=== PATIENT | female | born 1995 | race Caucasian/White ===

== ENCOUNTER 2018-06-28 09:16 | Inpatient (IN) | payer MEDICAID ==
[2018-06-28] MEDS ORDERED: Lactated Ringer 1,000 ML IV ONE ×2 (09:50→12:29)
[2018-06-28 09:58] LABS: HEMATOCRIT 45.6 % (41.0-60); HEMOGLOBIN 15.7 gm/dL (12-16); MEAN CELL VOLUME 90.2 fl (81-100); MEAN CORPUSCULAR HGB CONC 34.4 pg (28.0-36.0); MEAN PLATELET VOLUME 7.7 fl; PLATELET COUNT 327 Th/cmm (150-400); RED BLOOD COUNT 5.05 Mil/cmm (3.80-5.10); RED CELL DISTRIBUTION WIDTH 12.1 % (11.5-20.0)
--- NOTE | 2018-06-28 10:06 | ED Physician Chart ---
ED Chief Complaint/HPI - Patient Information Date Seen:: 06/28/18 Time Seen:: 09:25 Chief Complaint:: vomiting and epigastric pain History of Present Illness:: vomiting and epigastric pain--had pizza last night. had a small yogurt this morning. Allergies:: Allergies Allergy/AdvReac Type Severity Reaction Status Date / Time No Known Allergies Allergy Verified 06/28/18 09:30 Vitals:: Vital Signs - 8 hr 06/28/18 09:25 Temp 97.1 F HR 82 RR 18 BP 131/87 O2 Sat % 99 Historian:: Patient, Family Member Review:: Nurse's Note Reviewed ED Review of Systems - Review of Systems General/Constitutional: No fever, No chills, No weight loss, No weakness, No diaphoresis, No edema, No loss of appetite Skin: No skin lesions, No rash, No bruising Head: No headache, No light-headedness Eyes: No loss of vision, No pain, No diplopia ENT: No earache, No nasal drainage, No sore throat, No tinnitus Neck: No neck pain, No swelling, No thyromegaly, No stiffness, No mass noted Cardio Vascular: No chest pain, No palpitations, No PND, No orthopnea, No edema Pulmonary: No SOB, No cough, No sputum, No wheezing GI: Nausea, Vomiting, Diarrhea, Pain, No melena, No hematochezia, No constipation, No hematemesis G/U: No dysuria, No frequency, No hematuria 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, No abnormal vaginal bleed, No contraction Musculoskeletal: No bone or joint pain, No back pain, No muscle pain Endocrine: No polyuria, No polydipsia Psychiatric: No prior psych history, No depression, No anxiety, No suicidal ideation Hematopoietic: No bruising, No lymphadenopathy Allergic/Immuno: No urticaria, No angioedema Neurological: No syncope, No focal symptoms, No weakness, No paresthesia, No headache, No seizure, No dizziness, No confusion, No vertigo ED Past Medical History - Past Medical History Obtainable: Yes Past Medical History: No significant medical hx, Other (marijuana usage) Family Medical History - Family Member Mother History Unknown: Yes ED Physical Exam - Physical Examination General/Constitutional: Awake, Well-developed, well-nourished, Alert, GCS 15, Non-toxic appearing, Ambulatory Other Gen/Cons comments:: pale appearing. positive epigastric pain. Head: Atraumatic Eyes: Lids, conjuctiva normal, PERRL, EOMI Skin: Nl inspection, No rash, No skin lesions, No ecchymosis, Well hydrated, No lymphadenopathy ENMT: External ears, nose nl, Nasal exam nl, Lips, teeth, gums nl Neck: Nontender, Full ROM w/o pain, No JVD, No nuchal rigidity, No bruit, No mass, No stridor Respiratory: Nl effort/Exclusion, Clear to Auscultation, No Wheeze/Rhonchi/Rales Cardio Vascular: RRR, No murmur, gallop, rubs, NL S1 S2 Other GI comments:: Positive peritoneal signs with coughing (present in the epigastrium). Positive pain to palpation in the epigastrium. : No CVA tenderness Extremities: No tenderness or effusion, Full ROM, normal strength in all extremities, No edema, Normal digits & nails Neuro/Psych: Alert/oriented, Normal sensory exam, Normal motor strength, Judgement/insight normal, Normal gait, No focal deficits Misc: Normal back, No paraspinal tenderness ED Assessment - Assessment General Assessment: says that morphine doesn't usually work for her but dilaudid does. ED Septic Shock - . Is Septic Shock (SBP<90, OR Lactate>4 mmol\L) present?: No - <6hrs of presentation: Vital Signs: Vital Signs - 8 hr 06/28/18 09:25 Temp 97.1 F HR 82 RR 18 BP 131/87 O2 Sat % 99 ED Reassessment (Disposition) - Reassessment Reassessment Condition:: Improved - Aftercare/Follow up Instructions Aftercare/Follow-Up Instructions:: Refer to Discharge Instructions - Patient Disposition Discharge/Transfer:: Home Condition at Disposition:: Stable, Improved
[2018-06-28] MEDS ORDERED: Morphine Sulfate 2 mg/mL 1mL Syr IV STA ×3 (10:07→13:55)
[2018-06-28] MEDS ORDERED: Morphine Sulfate 2 mg/mL 1mL Syr ONE ×3 (10:10→13:59)
[2018-06-28 10:16] LABS: ALB/GLOB RATIO 1.9 (1.0-1.8); ALBUMIN 4.8 gm/dL (3.7-5.3); ALKALINE PHOSPHATASE 41 U/L (34-104); AMYLASE SERUM 20 U/L (29-103); ANION GAP 13.6 (7.0-16.0); BILIRUBIN,TOTAL 0.8 mg/dL (0.3-1.0); BUN - UREA NITROGEN 14 mg/dL (7-25); CALCIUM SERUM 10.2 mg/dL (8.6-10.3); CARBON DIOXIDE 24.2 mEq/L (21.0-31.0); CHLORIDE 105 mEq/L (98-107); CREATININE - SERUM 0.8 mg/dL (0.6-1.2); GFR AFRICAN-AMERICAN > 60.0 ml/min (>90); GFR NON AFRICAN-AMERICAN > 60.0 ml/min; GLUCOSE 164 mg/dL (70-105); LIPASE 7 U/L (11-82); MAGNESIUM 1.7 mg/dL (1.9-2.7); PHOSPHOROUS 1.6 mg/dL (2.5-5.0); POTASSIUM SERUM 3.8 mEq/L (3.5-5.1); SGOT 19 U/L (13-39); SGPT/ALT 17 U/L (7-52); SODIUM SERUM 139 mEq/L (136-145); TOTAL PROTEIN,SERUM 7.4 gm/dL (6.0-8.3)
[2018-06-28 10:24] LABS: BAND NEUTROPHILE 3 % (0-10); BASOPHIL 0 % (0-3); EOSINOPHIL 0 % (0-5); LYMPHOCYTE 10 % (20-50); MONOCYTE 2 % (2-10); NEUTROPHILS 85 % (40-80)
[2018-06-28 10:49] LABS: URINE SOURCE CLEAN C
--- NOTE | 2018-06-28 10:50 | Diagnostic Imaging Report ---
CT scan of the abdomen and pelvis without intravenous contrast History: Pain Total DLP equals 354 CTDI equals 7.9 Axial sections were obtained from the xiphoid process down to the pubic symphysis. The liver demonstrates a normal size and contour. No focal lesions are seen. The spleen appears normal. No abnormalities are seen in the region of the pancreas. The kidneys appear normal bilaterally. There is a normal caliber appendix with faint intraluminal hyperdensity. Changes may be related to small appendicoliths. No secondary inflammatory changes are seen. The significance should be correlated clinically. The exam of the pelvis demonstrates preservation of normal fat planes. No abnormal soft tissue masses. No abnormal fluid collections. Impression: 1. Normal caliber appendix with faint intraluminal hyperdensity. Small appendicoliths cannot be excluded. Preservation of adjacent fat planes with no secondary inflammatory signs. The significance should be correlated clinically. 2. No other significant abnormalities
[2018-06-28 10:59] LABS: URINE CLARITY CLEAR (CLEAR); URINE COLOR YELLOW
[2018-06-28 11:00] LABS: URINE BILIRUBIN NEGATIVE (NEGATIVE); URINE BLOOD NEGATIVE (NEGATIVE); URINE EPITHELIAL CELLS MANY /lpf (FEW); URINE GLUCOSE (UA) NEGATIVE (NEGATIVE); URINE KETONE TRACE mg/dL (NEGATIVE); URINE LEUKOCYTE ESTERASE NEGATIVE (NEGATIVE); URINE MICROSCOPIC INDICATED? YES; URINE NITRATE NEGATIVE (NEGATIVE); URINE PH 8.5 (4.6 - 8.0); URINE PROTEIN NEGATIVE (NEGATIVE); URINE RBC 0-2 /hpf (0-5); URINE UROBILINOGEN 0.2 E.U./dL (0.2 - 1.0); URINE WBC 0-2 /hpf (0-5)
[2018-06-28 11:01] LABS: URINE AMORPHOUS SEDIMENT MODERATE PHOSPHATES (NONE SEEN); URINE BACTERIA NONE SEEN /hpf (NONE SEEN)
[2018-06-28 11:18] LABS: AMPHETAMINE URINE NEGATIVE (NEGATIVE); BARBITURATES URINE NEGATIVE (NEGATIVE); BENZODIAZEPINES QUAL URINE NEGATIVE (NEGATIVE); CANNABINOID THC POSITIVE (NEGATIVE); COCAINE METABOLITE QUAL URINE NEGATIVE (NEGATIVE); METHADONE URINE NEGATIVE (NEGATIVE); METHAMPHETAMINES QUAL URINE NEGATIVE (NEGATIVE); OPIATES (MORPHINE) QUAL. URINE NEGATIVE (NEGATIVE); PHENCYCLIDINE (PCP) URINE NEGATIVE (NEGATIVE); TRICYCLICS (TCA) QUAL. URINE NEGATIVE (NEGATIVE)
--- NOTE | 2018-06-28 12:26 | Diagnostic Imaging Report ---
Abdominal ultrasound (Limited) HISTORY: Pain Exam limited to the right upper quadrant of the abdomen. The liver is somewhat generous in size. There is an increase in hepatic parenchymal echogenicity. This finding may be associated with fatty infiltration and should be correlated with liver function tests. No focal lesions. Gallbladder is normal. No calculi. No biliary dilatation. No abnormality seen in the region of the pancreas or right kidney. The remainder of the intra-abdominal organs were not evaluated at this time. IMPRESSION 1. Limited exam of the right upper quadrant 2. Normal-appearing gallbladder 3. Somewhat prominent hepatic size with increased parenchymal echogenicity. The finding may be associated with fatty infiltration and should be correlated with liver function tests.
[2018-06-28 13:33] LABS: BASOPHILE ABSOLUTE 0.1 Th/cumm (0-0.2); HEMATOCRIT 43.2 % (41.0-60); HEMOGLOBIN 14.9 gm/dL (12-16); LYMPHOCYTE ABSOLUTE 0.8 Th/cmm (1.5-3.0); MEAN CELL VOLUME 90.9 fl (81-100); MEAN CORPUSCULAR HEMOGLOBIN 31.3 pg (27.0-31.0); MEAN CORPUSCULAR HGB CONC 34.4 pg (28.0-36.0); MEAN PLATELET VOLUME 7.7 fl; MONOCYTE ABSOLUTE 0.8 Th/cmm (0.3-1.0); NEUTROPHILE ABSOLUTE 21.2 Th/cmm (1.8-8.0); PLATELET COUNT 279 Th/cmm (150-400); RED BLOOD COUNT 4.75 Mil/cmm (3.80-5.10); RED CELL DISTRIBUTION WIDTH 12.1 % (11.5-20.0)
[2018-06-28 13:36] LABS: WHITE BLOOD COUNT 22.9 Th/cmm (4.8-10.8)
[2018-06-28] MEDS ORDERED: Piperacillin Sodium/Tazobact 3.375 gm Vial IV ONE (13:51)
[2018-06-28 13:55] LABS: BAND NEUTROPHILE 3 % (0-10); LYMPHOCYTE 4 % (20-50); MONOCYTE 3 % (2-10); NEUTROPHILS 90 % (40-80)
[2018-06-28] MEDS: HYDROmorphone 1 mg/mL 1mL Syr IVP PRN ×2 (16:06→22:55)
[2018-06-28] MEDS: Sodium Chloride 0.9% 1,000 ML IV SCH (16:07)
[2018-06-28 17:48] VITALS: BP 138/84
[2018-06-29] MEDS ORDERED: Piperacillin Sodium/Tazobact 3.375 gm Vial IV ONE ×2 (01:21→04:57)
[2018-06-29] MEDS: HYDROmorphone 1 mg/mL 1mL Syr IVP PRN ×3 (05:02→18:05)
[2018-06-29 08:38] LABS: % EOSINOPHILS 1.2 % (0.0-5.0); % LYMPHOCYTES 18.5 % (20.0-50.0); % MONOCYTES 6.7 % (2.0-10.0); % NEUTROPHILS 73.6 % (40.0-80.0); EOSINOPHILE ABSOLUTE 0.2 Th/cmm (0.1-0.4); HEMOGLOBIN 13.3 gm/dL (12-16); LYMPHOCYTE ABSOLUTE 2.4 Th/cmm (1.5-3.0); MEAN CORPUSCULAR HEMOGLOBIN 31.6 pg (27.0-31.0); MEAN CORPUSCULAR HGB CONC 35.1 pg (28.0-36.0); MEAN PLATELET VOLUME 7.6 fl; MONOCYTE ABSOLUTE 0.9 Th/cmm (0.3-1.0); NEUTROPHILE ABSOLUTE 9.7 Th/cmm (1.8-8.0); PLATELET COUNT 236 Th/cmm (150-400); RED BLOOD COUNT 4.21 Mil/cmm (3.80-5.10); RED CELL DISTRIBUTION WIDTH 12.4 % (11.5-20.0)
[2018-06-29 08:46] LABS: WHITE BLOOD COUNT 13.2 Th/cmm (4.8-10.8)
[2018-06-29 08:47] LABS: HEMATOCRIT 37.9 % (41.0-60)
[2018-06-29 08:59] LABS: ALB/GLOB RATIO 1.9 (1.0-1.8); ALBUMIN 3.7 gm/dL (3.7-5.3); ALKALINE PHOSPHATASE 28 U/L (34-104); ANION GAP 10.1 (7.0-16.0); BILIRUBIN,TOTAL 1.4 mg/dL (0.3-1.0); BUN - UREA NITROGEN 9 mg/dL (7-25); CALCIUM SERUM 8.7 mg/dL (8.6-10.3); CARBON DIOXIDE 24.3 mEq/L (21.0-31.0); CHLORIDE 110 mEq/L (98-107); CREATININE - SERUM 0.7 mg/dL (0.6-1.2); GFR AFRICAN-AMERICAN > 60.0 ml/min (>90); GFR NON AFRICAN-AMERICAN > 60.0 ml/min; GLUCOSE 111 mg/dL (70-105); LIPASE 8 U/L (11-82); POTASSIUM SERUM 3.4 mEq/L (3.5-5.1); SGOT 12 U/L (13-39); SGPT/ALT 12 U/L (7-52); SODIUM SERUM 141 mEq/L (136-145); TOTAL PROTEIN,SERUM 5.7 gm/dL (6.0-8.3)
--- NOTE | 2018-06-29 09:04 | Diagnostic Imaging Report ---
Ultrasound abdomen HISTORY: Sepsis COMPARISON: CT abdomen and pelvis on 06/28/2018 Technique: Sonography of the abdomen was performed in multiple planes. FINDINGS: The liver demonstrates mild increased echogenicity with no evidence of focal lesions. The liver measures 18.4 cm. No evidence of gallstones or gallbladder wall thickening. The common bile duct measures 2 mm. Evaluation of the pancreas is grossly unremarkable. The right kidney measures 10.5 x 3.5 cm. No evidence of focal lesions or hydronephrosis. The left kidney measures 11.0 x 6.0 cm. No evidence of focal lesions or hydronephrosis. The spleen measures 10 cm. The visualized portions of the abdominal aorta within normal limits in size. IMPRESSION: No evidence of gallstones. No evidence of hydronephrosis. Mild hepatomegaly with mild increased echogenicity which may represent fatty infiltration. Please correlate with clinical findings.
--- NOTE | 2018-06-29 09:08 | Diagnostic Imaging Report ---
Ultrasound pelvis HISTORY: Sepsis pain, nausea and vomiting. Beta hCG is negative LMP is 06/18/2018 COMPARISON: CT abdomen and pelvis on 06/28/2018 Technique: Longitudinal and transverse sonographic sector images of the pelvis were obtained transabdominally and transvaginally. FINDINGS: The uterus measures 7.5 x 2.6 x 4.2 cm. The endometrium measures 2 mm. The right measures 4.1 x 2.6 cm. Right ovarian dominant follicular cyst is noted measuring 1.5 cm. The left ovary measures 3.2 x 2.5 cm. Vascular flow to ovaries is noted. No evidence of free fluid in the pelvis. IMPRESSION: Bilateral follicular cystic changes with dominant right ovarian follicular cysts measuring 1.5 cm. If necessary short-term follow-up may be obtained to ensure resolution. No evidence of free fluid in the pelvis. The Endometrial echo complex measures 2 mm.
--- NOTE | 2018-06-29 09:22 | History and Physical ---
History of Present Illness - HPI Chief Complaint: Abdominal pain and vomiting HPI: Patient refer that after she ate a piece of pizza he started with upper abdominal pain and vomiting reason why he came to ER. During ER evaluation was found WBC of 22 and was hospitalized. , Vital Signs: Last Vital Signs Temp 97.2 F 06/29/18 08:23 Pulse 62 06/29/18 08:23 Resp 17 06/29/18 08:23 BP 107/61 06/29/18 08:23 Pulse Ox 100 06/29/18 08:23 Past Medical History Cardiovascular: Report: No Pertinent Hx Pulmonary: Report: No Pertinent Hx [employer]: Report: No Pertinent Hx GI: Report: No Pertinent Hx Psych: Report: No Pertinent Hx Musculoskeletal: Report: No Pertinent Hx Rheumatologic: Report: No pertinent Hx Infectious Disease: Report: No Pertinent Hx Renal/: Report: No Pertinent Hx Endocrine: Report: No Pertinent Hx - Past Surgical History Past Surgical History: No pertinent Hx Family Medical History - Family Member Mother History Unknown: Yes Ethnicity: Living Status: Still Living Hx Family Cancer: Yes Hx Family Coronary Artery Disease: No Hx Family Congestive Heart Failure: No Hx Family Hypertension: No Hx Family Stroke: No Hx Family Diabetes: No Hx Family Seizures: No Hx Family Dementia: No Hx Family AIDS: No Hx Family HIV: No Hx Family COPD: No Hx Family Hepatitis: No Hx Family Psychiatric Problems: No Hx Family Tuberculosis: No Social History Smoke: No Alcohol: Occassional Drugs: Marijuana Lives: With Family Domestic Violence: Negative - Medications Home Medications: Home Medication Medication Instructions Recorded Type NK [No Home Meds] 06/28/18 History - Allergies Allergies/Adverse Reactions: Allergies Allergy/AdvReac Type Severity Reaction Status Date / Time No Known Allergies Allergy Verified 06/28/18 09:30 Review of Systems - Review of Systems Constitutional: Report: No Significant Eyes: Report: No Significant ENT: Report: No Significant Respiratory: Report: No Significant Cardiovascular: Report: No Significant Gastrointestinal: Report: Nausea, Vomiting, Abdominal Pain Genitourinary: Report: No Significant Musculoskeletal: Report: No Significant Skin: Report: No Significant Neurological: Report: No Significant Physical Exam - Physical Exam HEENT: Report: Ears Nose Throat within normal limits Neck: Report: Within normal limits Cardiovascular Systems: Report: Regular, Rate and Rhythm Respiratory: Report: Clear to Auscultation of lung dolan Abdomen: Report: Tender to palpation Back: Report: Inspection of back is within normal limits. Extremities: Report: Non-tender to palpation. Skin: Report: Color of skin is within normal limits, Warm, Dry Neuro/Psych: Report: Mood affect is within normal limits - Lab Results All Lab Results last 24 hours: Laboratory Results - last 24 hr 06/28/18 06/28/18 06/28/18 09:45 09:45 09:45 WBC 21.0 H* RBC 5.05 Hgb 15.7 Hct 45.6 MCV 90.2 MCH 31.0 MCHC Differential 34.4 RDW 12.1 Plt Count 327 MPV 7.7 Add Manual Diff YES Neutrophils % Band Neutrophils % 3 Lymphocytes % Monocytes % Eosinophils % Basophils % Neutrophils (Manual) 85 H Lymphocytes 10 L Monocytes 2 Eosinophils 0 Basophils 0 Sodium 139 Potassium 3.8 Chloride 105 Carbon Dioxide 24.2 Anion Gap 13.6 BUN 14 Creatinine 0.8 Est GFR ( Amer) > 60.0 Est GFR (Non-Af Amer) > 60.0 BUN/Creatinine Ratio 17.5 Glucose 164 H Whole Bld Lactic Acid Calcium 10.2 Phosphorus 1.6 L Magnesium 1.7 L Total Bilirubin 0.8 AST 19 ALT 17 Alkaline Phosphatase 41 Total Protein 7.4 Albumin 4.8 Globulin 2.6 Albumin/Globulin Ratio 1.9 H Amylase 20 L Lipase 7 L Serum , Qual NEGATIVE Urine Source Urine Color Urine Clarity Urine pH Ur Specific [place] Urine Protein Urine Glucose (UA) Urine Ketones Urine Blood Urine Nitrate Urine Bilirubin Urine Urobilinogen Ur Leukocyte Esterase Urine RBC Urine WBC Ur Epithelial Cells Amorphous Sediment Urine Bacteria Urine Mucus Stool Occult Blood Vancomycin Trough Urine Opiates Screen Urine Methadone Screen Ur Barbiturates Screen Ur Tricyclics Screen Ur Phencyclidine Scrn Amphetamines Screen U Methamphetamines Scrn U Benzodiazepines Scrn U Cocaine Metab Screen U Cannabinoids Screen 06/28/18 06/28/18 06/28/18 09:45 10:20 10:20 WBC RBC Hgb Hct MCV MCH MCHC Differential RDW Plt Count MPV Add Manual Diff Neutrophils % Band Neutrophils % Lymphocytes % Monocytes % Eosinophils % Basophils % Neutrophils (Manual) Lymphocytes Monocytes Eosinophils Basophils Sodium Potassium Chloride Carbon Dioxide Anion Gap BUN Creatinine Est GFR ( Amer) Est GFR (Non-Af Amer) BUN/Creatinine Ratio Glucose Whole Bld Lactic Acid 2.26 H* Calcium Phosphorus Magnesium Total Bilirubin AST ALT Alkaline Phosphatase Total Protein Albumin Globulin Albumin/Globulin Ratio Amylase Lipase Serum , Qual Urine Source CLEAN C Urine Color YELLOW Urine Clarity CLEAR Urine pH 8.5 Ur Specific [place] 1.020 Urine Protein NEGATIVE Urine Glucose (UA) NEGATIVE Urine Ketones TRACE Urine Blood NEGATIVE Urine Nitrate NEGATIVE Urine Bilirubin NEGATIVE Urine Urobilinogen 0.2 Ur Leukocyte Esterase NEGATIVE Urine RBC 0-2 Urine WBC 0-2 Ur Epithelial Cells MANY Amorphous Sediment MODERATE PHOSPHATES Urine Bacteria NONE SEEN Urine Mucus FEW Stool Occult Blood Vancomycin Trough Urine Opiates Screen NEGATIVE Urine Methadone Screen NEGATIVE Ur Barbiturates Screen NEGATIVE Ur Tricyclics Screen NEGATIVE Ur Phencyclidine Scrn NEGATIVE Amphetamines Screen NEGATIVE U Methamphetamines Scrn NEGATIVE U Benzodiazepines Scrn NEGATIVE U Cocaine Metab Screen NEGATIVE U Cannabinoids Screen POSITIVE H 06/28/18 06/28/18 06/28/18 11:45 13:20 13:55 WBC 22.9 H* RBC 4.75 Hgb 14.9 Hct 43.2 MCV 90.9 MCH 31.3 H MCHC Differential 34.4 RDW 12.1 Plt Count 279 MPV 7.7 Add Manual Diff YES Neutrophils % Band Neutrophils % 3 Lymphocytes % Monocytes % Eosinophils % Basophils % Neutrophils (Manual) 90 H Lymphocytes 4 L Monocytes 3 Eosinophils Basophils Sodium Potassium Chloride Carbon Dioxide Anion Gap BUN Creatinine Est GFR ( Amer) Est GFR (Non-Af Amer) BUN/Creatinine Ratio Glucose Whole Bld Lactic Acid 2.02 H* 2.44 H* Calcium Phosphorus Magnesium Total Bilirubin AST ALT Alkaline Phosphatase Total Protein Albumin Globulin Albumin/Globulin Ratio Amylase Lipase Serum , Qual Urine Source Urine Color Urine Clarity Urine pH Ur Specific [place] Urine Protein Urine Glucose (UA) Urine Ketones Urine Blood Urine Nitrate Urine Bilirubin Urine Urobilinogen Ur Leukocyte Esterase Urine RBC Urine WBC Ur Epithelial Cells Amorphous Sediment Urine Bacteria Urine Mucus Stool Occult Blood Vancomycin Trough Urine Opiates Screen Urine Methadone Screen Ur Barbiturates Screen Ur Tricyclics Screen Ur Phencyclidine Scrn Amphetamines Screen U Methamphetamines Scrn U Benzodiazepines Scrn U Cocaine Metab Screen U Cannabinoids Screen 06/28/18 06/28/18 06/29/18 14:44 15:55 08:30 WBC RBC Hgb Hct MCV MCH MCHC Differential RDW Plt Count MPV Add Manual Diff Neutrophils % Band Neutrophils % Lymphocytes % Monocytes % Eosinophils % Basophils % Neutrophils (Manual) Lymphocytes Monocytes Eosinophils Basophils Sodium Potassium Chloride Carbon Dioxide Anion Gap BUN Creatinine Est GFR ( Amer) Est GFR (Non-Af Amer) BUN/Creatinine Ratio Glucose Whole Bld Lactic Acid 3.45 H* Calcium Phosphorus Magnesium Total Bilirubin AST ALT Alkaline Phosphatase Total Protein Albumin Globulin Albumin/Globulin Ratio Amylase Lipase Serum , Qual Urine Source Urine Color Urine Clarity Urine pH Ur Specific [place] Urine Protein Urine Glucose (UA) Urine Ketones Urine Blood Urine Nitrate Urine Bilirubin Urine Urobilinogen Ur Leukocyte Esterase Urine RBC Urine WBC Ur Epithelial Cells Amorphous Sediment Urine Bacteria Urine Mucus Stool Occult Blood NEGATIVE Vancomycin Trough 13.0 H Urine Opiates Screen Urine Methadone Screen Ur Barbiturates Screen Ur Tricyclics Screen Ur Phencyclidine Scrn Amphetamines Screen U Methamphetamines Scrn U Benzodiazepines Scrn U Cocaine Metab Screen U Cannabinoids Screen 06/29/18 06/29/18 08:30 08:30 WBC 13.2 H D RBC 4.21 Hgb 13.3 Hct 37.9 L D MCV 90.0 MCH 31.6 H MCHC Differential 35.1 RDW 12.4 Plt Count 236 MPV 7.6 Add Manual Diff Neutrophils % 73.6 Band Neutrophils % Lymphocytes % 18.5 L Monocytes % 6.7 Eosinophils % 1.2 Basophils % 0.0 Neutrophils (Manual) Lymphocytes Monocytes Eosinophils Basophils Sodium 141 Potassium 3.4 L Chloride 110 H Carbon Dioxide 24.3 Anion Gap 10.1 BUN 9 Creatinine 0.7 Est GFR ( Amer) > 60.0 Est GFR (Non-Af Amer) > 60.0 BUN/Creatinine Ratio 12.9 Glucose 111 H Whole Bld Lactic Acid Calcium 8.7 Phosphorus Magnesium Total Bilirubin 1.4 H AST 12 L ALT 12 Alkaline Phosphatase 28 L Total Protein 5.7 L Albumin 3.7 Globulin 2.0 Albumin/Globulin Ratio 1.9 H Amylase Lipase 8 L Serum , Qual Urine Source Urine Color Urine Clarity Urine pH Ur Specific [place] Urine Protein Urine Glucose (UA) Urine Ketones Urine Blood Urine Nitrate Urine Bilirubin Urine Urobilinogen Ur Leukocyte Esterase Urine RBC Urine WBC Ur Epithelial Cells Amorphous Sediment Urine Bacteria Urine Mucus Stool Occult Blood Vancomycin Trough Urine Opiates Screen Urine Methadone Screen Ur Barbiturates Screen Ur Tricyclics Screen Ur Phencyclidine Scrn Amphetamines Screen U Methamphetamines Scrn U Benzodiazepines Scrn U Cocaine Metab Screen U Cannabinoids Screen - Assessment Assessment: Patient is awake, calm in no acute dostress. Dx: abdominal pain, Leukocytosis - Plan Plan: Patient is in IV NS, IV Vanco and sozyn, pain control, consult with ID and surgery requested. Will continue to monitor.
[2018-06-29] MEDS: Sodium Chloride 0.9% 1,000 ML IV SCH (09:24)
[2018-06-29] MEDS ORDERED: Potassium Chloride 20 mEq ER Tab PO ONE (10:00)
[2018-06-29] MEDS ORDERED: Probiotic Screen MC PRN (11:30)
--- NOTE | 2018-06-29 14:57 | Consultation ---
DATE OF CONSULTATION: 06/29/2018 SURGICAL CONSULTATION REFERRING PHYSICIAN: Dr. Gutierrez. REASON FOR CONSULTATION: Abdominal pain. Thank you for referring this patient to me. HISTORY OF PRESENT ILLNESS: This 22-year-old female who started having pain about 2 days ago. Pain was epigastric, associated with some nausea. In the ER, she was found to have WBC of 22,000. A CT scan of the abdomen was unremarkable except for possible appendicolith. Gallbladder ultrasound was done x 2 and this did not show any gallstones or gallbladder wall thickening. The repeat lab test today shows WBC down to 13,200 and the chemistries initially showed normal liver function test and now there is some elevation of the bilirubin to 1.4. HIDA scan was ordered, but the machine is not functional now and will wait for this to be done. PHYSICAL EXAMINATION: The patient is alert and awake. There is minimal tenderness mostly in the epigastric area. No tenderness in the right lower quadrant. The patient has had no previous and no previous abdominal surgery. IMPRESSION: Abdominal pain, etiology? possible non-calculous cholecystitis and/or peptic ulcer disease. RECOMMENDATION: 1. Await HIDA scan. 2. GI consult recommended. JOB# [id number]
[2018-06-30] MEDS: HYDROmorphone 1 mg/mL 1mL Syr IVP PRN ×4 (00:13→18:18)
--- NOTE | 2018-06-30 01:16 | Consultation ---
DATE OF CONSULTATION: 06/29/2018 INFECTIOUS DISEASE CONSULTATION REFERRING PHYSICIAN: Dr. Gutierrez. REASON FOR CONSULTATION: Leukocytosis. HISTORY OF PRESENT ILLNESS: The patient is a 22-year-old female with no significant past medical history, presented to ER with bilious vomiting, ____ epigastric pain, to alert him one hour after eating pizza the night before yesterday. On initial evaluation, her temperature was 97.1 degree Fahrenheit and WBC count was 21,000. Repeat CBC showed increase in WBC from 22,900. Lactic acid was 2.02, it went up to 3.45. The patient was started on IV fluid and antibiotic, vancomycin and Zosyn. Today she is feeling better and her WBC count improved to 13,000. CT scan of the abdomen and pelvis and ultrasound abdomen performed, transvaginal ultrasound was also performed. Report reviewed. PAST MEDICAL HISTORY: None significant. FAMILY HISTORY: None significant. ALLERGIES: NKDA. MEDICATIONS: As per medication reconciliation sheet. Antibiotic beasley, the patient is receiving vancomycin and Zosyn. FAMILY HISTORY: Noncontributory. SOCIAL HISTORY: The patient lives with her family. No history of smoking or alcohol. The patient takes marihuana on special occasions. REVIEW OF SYSTEMS: GENERAL: The patient has no fever, no chills. HEENT: No diplopia, no photophobia, no sore throat. RESPIRATORY: No cough, no shortness of breath. CARDIOVASCULAR: No chest pain or palpitation. GASTROINTESTINAL: The patient has no nausea, no vomiting, but the patient has right upper quadrant epigastric pain. GENITOURINARY: No dysuria. NEUROLOGIC: No headache, no dizziness, no focal weakness. PHYSICAL EXAMINATION: VITAL SIGNS: Shows temperature is 98 degrees Fahrenheit, pulse 70, respirations 17, blood pressure 112/70. GENERAL: The patient is comfortable lying in the bed, not in acute distress. HEENT: Head is normocephalic, atraumatic. Oral cavity moist, pink tongue. Eyes: Pallor is present, no icterus. Pupils PERRLA, EOMI. NECK: Supple, no JVD, no carotid bruit. Trachea midline. CHEST: Bilateral breath sounds. No crackles or wheezing. HEART: S1, S2 within normal limits. Regular rhythm. No murmur, no gallop. ABDOMEN: Soft. The patient has right upper quadrant tenderness. No epigastric tenderness. Bowel sounds present. EXTREMITIES: No cyanosis, no clubbing, no edema. NEUROLOGICAL: Alert, awake, oriented x3. No focal deficit. LABORATORY DATA: Current lab shows WBC count 13,200, hemoglobin is 13.3, hematocrit is 37.9, platelets are 236,000, neutrophils 74%. Sodium 141, potassium 3.4, chloride 110, bicarbonate is 24, BUN is 9, creatinine 0.7, glucose is 111. Lactic acid 3.45. Urinalysis negative nitrite, negative leukoesterase and WBC 0-2, moderate bacteria. Stool for occult blood negative. Drug screen is positive for cannabinoids. IMPRESSION: 1. Likely gastroenteritis, rule out gallbladder disease. 2. Leukocytosis, improving, secondary to #1. Recommend change antibiotic to Levaquin and Flagyl IV. Depending on the HIDA scan which is ordered tomorrow. We will decide further therapy. Thank you, Dr. Gutierrez for involving me in taking care of this patient. JOB# [id number] [facility]
[2018-06-30] MEDS: Sodium Chloride 0.9% 1,000 ML IV SCH ×2 (05:44→18:59)
[2018-06-30 06:47] LABS: HEMATOCRIT 40.2 % (41.0-60); HEMOGLOBIN 13.8 gm/dL (12-16); MEAN CELL VOLUME 91.5 fl (81-100); MEAN CORPUSCULAR HEMOGLOBIN 31.5 pg (27.0-31.0); MEAN CORPUSCULAR HGB CONC 34.4 pg (28.0-36.0); MEAN PLATELET VOLUME 8.5 fl; PLATELET COUNT 238 Th/cmm (150-400); RED CELL DISTRIBUTION WIDTH 12.2 % (11.5-20.0)
[2018-06-30 06:54] LABS: WHITE BLOOD COUNT 21.8 Th/cmm (4.8-10.8)
[2018-06-30 07:28] LABS: BAND NEUTROPHILE 1 % (0-10); BASOPHIL 1 % (0-3); EOSINOPHIL 0 % (0-5); LYMPHOCYTE 5 % (20-50); MONOCYTE 5 % (2-10); NEUTROPHILS 88 % (40-80)
--- NOTE | 2018-06-30 08:45 | General Progress Note ---
Subjective - Review of Systems Service Date: 06/30/18 Events since last encounter: HIDA being done now WBC 21.8, etiology? no CMP report yet suggest GI consult Objective - Results Result Diagrams: 06/30/18 05:35 06/29/18 08:30 Recent Labs: Laboratory Last Values WBC 21.8 Th/cmm (4.8-10.8) H* D 06/30/18 05:35 RBC 4.40 Mil/cmm (3.80-5.10) 06/30/18 05:35 Hgb 13.8 gm/dL (12-16) 06/30/18 05:35 Hct 40.2 % (41.0-60) L 06/30/18 05:35 MCV 91.5 fl (81-100) 06/30/18 05:35 MCH 31.5 pg (27.0-31.0) H 06/30/18 05:35 MCHC Differential 34.4 pg (28.0-36.0) 06/30/18 05:35 RDW 12.2 % (11.5-20.0) 06/30/18 05:35 Plt Count 238 Th/cmm (150-400) 06/30/18 05:35 MPV 8.5 fl 06/30/18 05:35 Add Manual Diff YES 06/30/18 05:35 Neutrophils % 73.6 % (40.0-80.0) 06/29/18 08:30 Band Neutrophils % 1 % (0-10) 06/30/18 05:35 Lymphocytes % 18.5 % (20.0-50.0) L 06/29/18 08:30 Monocytes % 6.7 % (2.0-10.0) 06/29/18 08:30 Eosinophils % 1.2 % (0.0-5.0) 06/29/18 08:30 Basophils % 0.0 % (0.0-2.0) 06/29/18 08:30 Neutrophils (Manual) 88 % (40-80) H 06/30/18 05:35 Lymphocytes 5 % (20-50) L 06/30/18 05:35 Monocytes 5 % (2-10) 06/30/18 05:35 Eosinophils 0 % (0-5) 06/30/18 05:35 Basophils 1 % (0-3) 06/30/18 05:35 Sodium 141 mEq/L (136-145) 06/29/18 08:30 Potassium 3.4 mEq/L (3.5-5.1) L 06/29/18 08:30 Chloride 110 mEq/L (98-107) H 06/29/18 08:30 Carbon Dioxide 24.3 mEq/L (21.0-31.0) 06/29/18 08:30 Anion Gap 10.1 (7.0-16.0) 06/29/18 08:30 BUN 9 mg/dL (7-25) 06/29/18 08:30 Creatinine 0.7 mg/dL (0.6-1.2) 06/29/18 08:30 Est GFR ( Amer) > 60.0 ml/min (>90) 06/29/18 08:30 Est GFR (Non-Af Amer) > 60.0 ml/min 06/29/18 08:30 BUN/Creatinine Ratio 12.9 06/29/18 08:30 Glucose 111 mg/dL (70-105) H 06/29/18 08:30 Whole Bld Lactic Acid 1.31 mmol/L (0.60-1.99) 06/29/18 17:10 Calcium 8.7 mg/dL (8.6-10.3) 06/29/18 08:30 Phosphorus 1.6 mg/dL (2.5-5.0) L 06/28/18 09:45 Magnesium 1.7 mg/dL (1.9-2.7) L 06/28/18 09:45 Total Bilirubin 1.4 mg/dL (0.3-1.0) H 06/29/18 08:30 AST 12 U/L (13-39) L 06/29/18 08:30 ALT 12 U/L (7-52) 06/29/18 08:30 Alkaline Phosphatase 28 U/L (34-104) L 06/29/18 08:30 Total Protein 5.7 gm/dL (6.0-8.3) L 06/29/18 08:30 Albumin 3.7 gm/dL (3.7-5.3) 06/29/18 08:30 Globulin 2.0 gm/dL 06/29/18 08:30 Albumin/Globulin Ratio 1.9 (1.0-1.8) H 06/29/18 08:30 Amylase 20 U/L (29-103) L 06/28/18 09:45 Lipase 8 U/L (11-82) L 06/29/18 08:30 Serum , Qual NEGATIVE (NEGATIVE) 06/28/18 09:45 Urine Source CLEAN C 06/28/18 10:20 Urine Color YELLOW 06/28/18 10:20 Urine Clarity CLEAR (CLEAR) 06/28/18 10:20 Urine pH 8.5 (4.6 - 8.0) 06/28/18 10:20 Ur Specific [place] 1.020 (1.005-1.030) 06/28/18 10:20 Urine Protein NEGATIVE mg/dL (NEGATIVE) 06/28/18 10:20 Urine Glucose (UA) NEGATIVE mg/dL (NEGATIVE) 06/28/18 10:20 Urine Ketones TRACE mg/dL (NEGATIVE) 06/28/18 10:20 Urine Blood NEGATIVE (NEGATIVE) 06/28/18 10:20 Urine Nitrate NEGATIVE (NEGATIVE) 06/28/18 10:20 Urine Bilirubin NEGATIVE (NEGATIVE) 06/28/18 10:20 Urine Urobilinogen 0.2 E.U./dL (0.2 - 1.0) 06/28/18 10:20 Ur Leukocyte Esterase NEGATIVE (NEGATIVE) 06/28/18 10:20 Urine RBC 0-2 /hpf (0-5) 06/28/18 10:20 Urine WBC 0-2 /hpf (0-5) 06/28/18 10:20 Ur Epithelial Cells MANY /lpf (FEW) 06/28/18 10:20 Amorphous Sediment MODERATE PHOSPHATES (NONE SEEN) 06/28/18 10:20 Urine Bacteria NONE SEEN /hpf (NONE SEEN) 06/28/18 10:20 Urine Mucus FEW /lpf (FEW) 06/28/18 10:20 Stool Occult Blood NEGATIVE (NEGATIVE) 06/28/18 14:44 Vancomycin Trough 13.0 ug/mL (5-10) H 06/29/18 08:30 Urine Opiates Screen NEGATIVE (NEGATIVE) 06/28/18 10:20 Urine Methadone Screen NEGATIVE (NEGATIVE) 06/28/18 10:20 Ur Barbiturates Screen NEGATIVE (NEGATIVE) 06/28/18 10:20 Ur Tricyclics Screen NEGATIVE (NEGATIVE) 06/28/18 10:20 Ur Phencyclidine Scrn NEGATIVE (NEGATIVE) 06/28/18 10:20 Amphetamines Screen NEGATIVE (NEGATIVE) 06/28/18 10:20 U Methamphetamines Scrn NEGATIVE (NEGATIVE) 06/28/18 10:20 U Benzodiazepines Scrn NEGATIVE (NEGATIVE) 06/28/18 10:20 U Cocaine Metab Screen NEGATIVE (NEGATIVE) 06/28/18 10:20 U Cannabinoids Screen POSITIVE (NEGATIVE) H 06/28/18 10:20 - Physical Exam Vitals and I&O: Vital Signs Temp 97.9 F 06/30/18 04:00 Pulse 70 06/30/18 04:00 Resp 18 06/30/18 04:00 BP 141/95 06/30/18 04:00 Pulse Ox 100 06/30/18 04:00 Intake & Output 06/29/18 06/30/18 06/30/18 18:59 06:59 18:59 Intake Total 850 1480 Output Total 300 Balance 550 1480 Weight (lbs) 62.596 kg 64.41 kg Intake: Intake, IV Amount 50 1000 Piperacillin Sodium/ 50 Tazobact 3.375 gm In Sodium Chloride 0.9% 50 ml @ 100 mls/hr IV Q6HR [facility] Rx#:[id number] Sodium Chloride 0.9% 1, 1000 000 ml @ 75 mls/hr IV . [id number] [facility] Rx#:[id number] Oral 800 480 Output: Emesis 300 Other: # Voids 5 4 # Bowel Movements 1 Stool Characteristics Soft Weight Source Bedscale Bedscale Active Medications: Current Medications Famotidine (Pepcid) 20 mg IVP Q24HR [facility] Stop: 08/27/18 15:03 Last Admin: 06/29/18 15:46 Dose: 20 mg Hydromorphone HCl (Dilaudid) 1 mg IVP Q6HR PRN PRN Reason: Pain (Severe) Stop: 08/27/18 15:03 Last Admin: 06/30/18 06:01 Dose: 1 mg Sodium Chloride (Nacl 0.9%) 1,000 mls @ 75 mls/hr IV .[id number] [facility] Stop: 08/27/18 15:03 Last Admin: 06/30/18 05:44 Dose: 75 mls/hr Ceftriaxone Sodium 1 gm/ (Dextrose) 50 mls @ 100 mls/hr IV Q24H [facility] Stop: 08/28/18 15:59 Last Admin: 06/29/18 15:45 Dose: 100 mls/hr Lactobacillus Rhamnosus (Culturelle 15b) 1 each PO DAILY [facility] Stop: 08/29/18 08:59 Metronidazole (Flagyl) 500 mg PO BID [facility] Stop: 07/06/18 16:59 Last Admin: 06/29/18 17:12 Dose: 500 mg Miscellaneous (Probiotic Screen) 1 ea PRN PRN PRN Reason: PROTOCOL Stop: 08/28/18 11:29 Ondansetron HCl (Zofran) 4 mg IV Q8HR [facility] Stop: 08/27/18 20:59 Last Admin: 06/30/18 06:01 Dose: 4 mg Ondansetron HCl (Zofran) 4 mg IV Q6H PRN PRN Reason: Nausea / Vomiting Stop: 08/28/18 16:18 Last Admin: 06/30/18 00:13 Dose: 4 mg
--- NOTE | 2018-06-30 09:09 | General Progress Note ---
Subjective - Review of Systems Service Date: 06/30/18 Subjective: I have nausea Objective - Results Result Diagrams: 06/30/18 05:35 06/29/18 08:30 Recent Labs: Laboratory Last Values WBC 21.8 Th/cmm (4.8-10.8) H* D 06/30/18 05:35 RBC 4.40 Mil/cmm (3.80-5.10) 06/30/18 05:35 Hgb 13.8 gm/dL (12-16) 06/30/18 05:35 Hct 40.2 % (41.0-60) L 06/30/18 05:35 MCV 91.5 fl (81-100) 06/30/18 05:35 MCH 31.5 pg (27.0-31.0) H 06/30/18 05:35 MCHC Differential 34.4 pg (28.0-36.0) 06/30/18 05:35 RDW 12.2 % (11.5-20.0) 06/30/18 05:35 Plt Count 238 Th/cmm (150-400) 06/30/18 05:35 MPV 8.5 fl 06/30/18 05:35 Add Manual Diff YES 06/30/18 05:35 Neutrophils % 73.6 % (40.0-80.0) 06/29/18 08:30 Band Neutrophils % 1 % (0-10) 06/30/18 05:35 Lymphocytes % 18.5 % (20.0-50.0) L 06/29/18 08:30 Monocytes % 6.7 % (2.0-10.0) 06/29/18 08:30 Eosinophils % 1.2 % (0.0-5.0) 06/29/18 08:30 Basophils % 0.0 % (0.0-2.0) 06/29/18 08:30 Neutrophils (Manual) 88 % (40-80) H 06/30/18 05:35 Lymphocytes 5 % (20-50) L 06/30/18 05:35 Monocytes 5 % (2-10) 06/30/18 05:35 Eosinophils 0 % (0-5) 06/30/18 05:35 Basophils 1 % (0-3) 06/30/18 05:35 Sodium 141 mEq/L (136-145) 06/29/18 08:30 Potassium 3.4 mEq/L (3.5-5.1) L 06/29/18 08:30 Chloride 110 mEq/L (98-107) H 06/29/18 08:30 Carbon Dioxide 24.3 mEq/L (21.0-31.0) 06/29/18 08:30 Anion Gap 10.1 (7.0-16.0) 06/29/18 08:30 BUN 9 mg/dL (7-25) 06/29/18 08:30 Creatinine 0.7 mg/dL (0.6-1.2) 06/29/18 08:30 Est GFR ( Amer) > 60.0 ml/min (>90) 06/29/18 08:30 Est GFR (Non-Af Amer) > 60.0 ml/min 06/29/18 08:30 BUN/Creatinine Ratio 12.9 06/29/18 08:30 Glucose 111 mg/dL (70-105) H 06/29/18 08:30 Whole Bld Lactic Acid 1.31 mmol/L (0.60-1.99) 06/29/18 17:10 Calcium 8.7 mg/dL (8.6-10.3) 06/29/18 08:30 Phosphorus 1.6 mg/dL (2.5-5.0) L 06/28/18 09:45 Magnesium 1.7 mg/dL (1.9-2.7) L 06/28/18 09:45 Total Bilirubin 1.4 mg/dL (0.3-1.0) H 06/29/18 08:30 AST 12 U/L (13-39) L 06/29/18 08:30 ALT 12 U/L (7-52) 06/29/18 08:30 Alkaline Phosphatase 28 U/L (34-104) L 06/29/18 08:30 Total Protein 5.7 gm/dL (6.0-8.3) L 06/29/18 08:30 Albumin 3.7 gm/dL (3.7-5.3) 06/29/18 08:30 Globulin 2.0 gm/dL 06/29/18 08:30 Albumin/Globulin Ratio 1.9 (1.0-1.8) H 08/21/18 08:30 Amylase 20 U/L (29-103) L 06/28/18 09:45 Lipase 8 U/L (11-82) L 06/29/18 08:30 Serum , Qual NEGATIVE (NEGATIVE) 06/28/18 09:45 Urine Source CLEAN C 06/28/18 10:20 Urine Color YELLOW 06/28/18 10:20 Urine Clarity CLEAR (CLEAR) 06/28/18 10:20 Urine pH 8.5 (4.6 - 8.0) 06/28/18 10:20 Ur Specific [place] 1.020 (1.005-1.030) 06/28/18 10:20 Urine Protein NEGATIVE mg/dL (NEGATIVE) 06/28/18 10:20 Urine Glucose (UA) NEGATIVE mg/dL (NEGATIVE) 06/28/18 10:20 Urine Ketones TRACE mg/dL (NEGATIVE) 06/28/18 10:20 Urine Blood NEGATIVE (NEGATIVE) 06/28/18 10:20 Urine Nitrate NEGATIVE (NEGATIVE) 06/28/18 10:20 Urine Bilirubin NEGATIVE (NEGATIVE) 06/28/18 10:20 Urine Urobilinogen 0.2 E.U./dL (0.2 - 1.0) 06/28/18 10:20 Ur Leukocyte Esterase NEGATIVE (NEGATIVE) 06/28/18 10:20 Urine RBC 0-2 /hpf (0-5) 06/28/18 10:20 Urine WBC 0-2 /hpf (0-5) 06/28/18 10:20 Ur Epithelial Cells MANY /lpf (FEW) 06/28/18 10:20 Amorphous Sediment MODERATE PHOSPHATES (NONE SEEN) 06/28/18 10:20 Urine Bacteria NONE SEEN /hpf (NONE SEEN) 06/28/18 10:20 Urine Mucus FEW /lpf (FEW) 06/28/18 10:20 Stool Occult Blood NEGATIVE (NEGATIVE) 06/28/18 14:44 Vancomycin Trough 13.0 ug/mL (5-10) H 06/29/18 08:30 Urine Opiates Screen NEGATIVE (NEGATIVE) 06/28/18 10:20 Urine Methadone Screen NEGATIVE (NEGATIVE) 06/28/18 10:20 Ur Barbiturates Screen NEGATIVE (NEGATIVE) 06/28/18 10:20 Ur Tricyclics Screen NEGATIVE (NEGATIVE) 06/28/18 10:20 Ur Phencyclidine Scrn NEGATIVE (NEGATIVE) 06/28/18 10:20 Amphetamines Screen NEGATIVE (NEGATIVE) 06/28/18 10:20 U Methamphetamines Scrn NEGATIVE (NEGATIVE) 06/28/18 10:20 U Benzodiazepines Scrn NEGATIVE (NEGATIVE) 06/28/18 10:20 U Cocaine Metab Screen NEGATIVE (NEGATIVE) 06/28/18 10:20 U Cannabinoids Screen POSITIVE (NEGATIVE) H 06/28/18 10:20 - Physical Exam Vitals and I&O: Vital Signs Temp 97.9 F 06/30/18 04:00 Pulse 70 06/30/18 04:00 Resp 18 06/30/18 04:00 BP 141/95 06/30/18 04:00 Pulse Ox 100 06/30/18 04:00 Intake & Output 06/29/18 06/30/18 06/30/18 18:59 06:59 18:59 Intake Total 850 1480 Output Total 300 Balance 550 1480 Weight (lbs) 62.596 kg 64.41 kg Intake: Intake, IV Amount 50 1000 Piperacillin Sodium/ 50 Tazobact 3.375 gm In Sodium Chloride 0.9% 50 ml @ 100 mls/hr IV Q6HR [facility] Rx#:[id number] Sodium Chloride 0.9% 1, 1000 000 ml @ 75 mls/hr IV . [id number] [facility] Rx#:[id number] Oral 800 480 Output: Emesis 300 Other: # Voids 5 4 # Bowel Movements 1 Stool Characteristics Soft Weight Source Bedscale Bedscale Active Medications: Current Medications Famotidine (Pepcid) 20 mg IVP Q24HR [facility] Stop: 08/27/18 15:03 Last Admin: 06/29/18 15:46 Dose: 20 mg Hydromorphone HCl (Dilaudid) 1 mg IVP Q6HR PRN PRN Reason: Pain (Severe) Stop: 08/27/18 15:03 Last Admin: 06/30/18 06:01 Dose: 1 mg Sodium Chloride (Nacl 0.9%) 1,000 mls @ 75 mls/hr IV .[id number] [facility] Stop: 08/27/18 15:03 Last Admin: 06/30/18 05:44 Dose: 75 mls/hr Ceftriaxone Sodium 1 gm/ (Dextrose) 50 mls @ 100 mls/hr IV Q24H [facility] Stop: 08/28/18 15:59 Last Admin: 06/29/18 15:45 Dose: 100 mls/hr Lactobacillus Rhamnosus (Culturelle 15b) 1 each PO DAILY [facility] Stop: 08/29/18 08:59 Metronidazole (Flagyl) 500 mg PO BID [facility] Stop: 07/06/18 16:59 Last Admin: 06/29/18 17:12 Dose: 500 mg Miscellaneous (Probiotic Screen) 1 ea [facility] PRN PRN PRN Reason: PROTOCOL Stop: 08/28/18 11:29 Ondansetron HCl (Zofran) 4 mg IV Q6H PRN PRN Reason: Nausea / Vomiting Stop: 08/28/18 16:18 Last Admin: 06/30/18 00:13 Dose: 4 mg General: Alert, Oriented x3, No acute distress HEENT: Atraumatic Neck: Supple Cardiovascular: Regular rate Lungs: Clear to auscultation Abdomen: Bowel sounds, Soft, Other (Tender at palpation on hepygastry) Extremities: Other (No edema) Neurological: Normal gait Skin: Other (Warm and dry) Psych/Mental Status: Mental status NL Assessment/Plan - Assessment Assessment: Patient is awake, calm in no acute distress. The WBC increased, went from 13 to 21. [place] increased. Dx: abdominal pain, Leukocytosis - Plan Plan: Patient is in IV NS, antibiotic change to IV Rocephin and metronidazole. Patient follow by ID and surgery, consult with GI requested. Awaitting HIDA scan results. Will continue to monitor.
[2018-06-30 09:19] LABS: ALB/GLOB RATIO 1.8 (1.0-1.8); ALBUMIN 4.3 gm/dL (3.7-5.3); ALKALINE PHOSPHATASE 31 U/L (34-104); ANION GAP 14.8 (7.0-16.0); BILIRUBIN,TOTAL 1.5 mg/dL (0.3-1.0); BUN - UREA NITROGEN 10 mg/dL (7-25); CALCIUM SERUM 9.4 mg/dL (8.6-10.3); CARBON DIOXIDE 21.7 mEq/L (21.0-31.0); CHLORIDE 105 mEq/L (98-107); GFR AFRICAN-AMERICAN > 60.0 ml/min (>90); GFR NON AFRICAN-AMERICAN > 60.0 ml/min; GLUCOSE 147 mg/dL (70-105); POTASSIUM SERUM 3.5 mEq/L (3.5-5.1); SGOT 20 U/L (13-39); SGPT/ALT 17 U/L (7-52); SODIUM SERUM 138 mEq/L (136-145); TOTAL PROTEIN,SERUM 6.7 gm/dL (6.0-8.3)
[2018-06-30] MEDS: Lactobacillus Rhamnosus GG 15 Billion CFU CAP.SPRINK PO SCH (09:39)
--- NOTE | 2018-06-30 09:53 | Diagnostic Imaging Report ---
Radionuclide biliary scan (HIDA scan) HISTORY: Pain 5.9 mCi technetium labeled biliary age and is in the exam. There is normal hepatic uptake and clearance. There is normal excretion of nuclide into the gallbladder and common bile duct. Slight delay in visualization of the small bowel. Significance should be correlated clinically. IMPRESSION: 1. Normal visualization of the gallbladder 2. Slight delay in excretion of nuclide into the small bowel. Significance should be correlated clinically and with laboratory data.
[2018-07-01] MEDS: HYDROmorphone 1 mg/mL 1mL Syr IVP PRN ×4 (00:54→22:12)
--- NOTE | 2018-07-01 02:11 | Consultation ---
DATE OF CONSULTATION: 06/30/2018 GASTROENTEROLOGY CONSULTATION REQUESTING PHYSICIAN: Dr. Gutierrez. REASON FOR CONSULTATION: Abdominal pain. HISTORY OF PRESENT ILLNESS: A 22-year-old female, otherwise healthy, who smokes cannabis on a chronic basis, admitted for 2-day history of epigastric pain with nausea and vomiting. She had a similar episode a few months ago that resolved on its own. She has been smoking cannabis for many years. On admission here, she had leukocytosis and mild hyperbilirubinemia. CT of the abdomen and pelvis showed normal caliber appendix with no significant inflammatory change. Abdominal ultrasound showed no evidence of gallstones or hydronephrosis, mild hepatomegaly with possible fatty liver change was also noted. HIDA scan showed normal filling of the gallbladder with slight delay in visualization of the small bowel. PAST MEDICAL HISTORY: As above. PAST SURGICAL HISTORY: Negative. MEDICATIONS: Here are Rocephin, Flagyl, Pepcid, Dilaudid, culturelle, probiotics, Zofran, and IV fluids. ALLERGIES: No known drug allergies. SOCIAL HISTORY: Positive tobacco, positive cannabis. Occasional alcohol. No other drug use. FAMILY HISTORY: Noncontributory. REVIEW OF SYSTEMS: Negative. PHYSICAL EXAMINATION: VITAL SIGNS: Temperature of 97.6, blood pressure 115/75, pulse of 50, respirations 18, O2 sat is 100%. GENERAL: The patient is well-developed, well-nourished female, who is in no acute distress. HEENT: Sclerae nonicteric. Oropharynx is clear. CARDIOVASCULAR: Regular rate and rhythm. LUNGS: Clear to auscultation bilaterally. ABDOMEN: Soft, mild epigastric tenderness to palpation without rebound or guarding. No hepatomegaly is appreciated. EXTREMITIES: No clubbing, cyanosis, or edema. RECTAL: Deferred. LABORATORY DATA/IMAGING: WBC is 21.8 and on admission was 21. Hemoglobin is normal, platelet count is normal. Chemistries including creatinine are normal. Bilirubin initially was 0.8, but up to 1.5 now. Other transaminases and alkaline phosphatase are normal. Albumin is normal. Lipase and amylase were normal. Serum test is negative. Urinalysis is clear. U-tox is positive for cannabis. IMPRESSION: 1. Epigastric abdominal pain with nausea and vomiting. This may be due to peptic ulcer disease or gastritis or GERD. It could also be from cyclic vomiting syndrome and perhaps cannabis hyperemesis syndrome, and less likely is the possibility of a retained common bile duct stone. 2. Leukocytosis, rule out sepsis versus inflammatory change. 3. Cannabis abuse. RECOMMENDATIONS: 1. IV fluids with a clear liquid diet and advance as tolerated. 2. Antibiotics as per ID lactation consultant. 3. Monitor liver enzymes. At this point, the hyperbilirubinemia is most likely from antibiotics and/or sepsis and less likely due to any intrinsic liver disease. 4. We will obtain MRCP to evaluate for common bile duct stone or stricture. If this is positive, then consider ERCP. 5. Consider upper endoscopy in the next day or 2 pending MRCP results. 6. We will stop Pepcid and give Protonix. 7. Continue antiemetics. 8. Cannabis cessation strongly advised. Thank you, Dr. Juan Gutierrez for involving us in the care of your patient. If you have any further questions, please call us. JOB# [id number]
[2018-07-01 06:05] LABS: % EOSINOPHILS 0.4 % (0.0-5.0); % LYMPHOCYTES 17.9 % (20.0-50.0); % MONOCYTES 9.1 % (2.0-10.0); % NEUTROPHILS 72.6 % (40.0-80.0); EOSINOPHILE ABSOLUTE 0.1 Th/cmm (0.1-0.4); HEMATOCRIT 41.4 % (41.0-60); HEMOGLOBIN 14.2 gm/dL (12-16); LYMPHOCYTE ABSOLUTE 2.7 Th/cmm (1.5-3.0); MEAN CELL VOLUME 89.9 fl (81-100); MEAN CORPUSCULAR HEMOGLOBIN 30.9 pg (27.0-31.0); MEAN CORPUSCULAR HGB CONC 34.4 pg (28.0-36.0); MEAN PLATELET VOLUME 7.8 fl; MONOCYTE ABSOLUTE 1.4 Th/cmm (0.3-1.0); NEUTROPHILE ABSOLUTE 11.1 Th/cmm (1.8-8.0); PLATELET COUNT 227 Th/cmm (150-400); RED CELL DISTRIBUTION WIDTH 11.9 % (11.5-20.0)
[2018-07-01 06:06] LABS: WHITE BLOOD COUNT 15.3 Th/cmm (4.8-10.8)
[2018-07-01 06:08] LABS: INR 1.08 (0.5-1.4); PROTHROMBIN TIME (TEST) 11.2 SECONDS (9.5-11.5)
[2018-07-01 07:16] LABS: ALB/GLOB RATIO 1.7 (1.0-1.8); ALBUMIN 4.1 gm/dL (3.7-5.3); ALKALINE PHOSPHATASE 31 U/L (34-104); AMYLASE SERUM 11 U/L (29-103); ANION GAP 13.1 (7.0-16.0); BILIRUBIN,TOTAL 1.4 mg/dL (0.3-1.0); BUN - UREA NITROGEN 9 mg/dL (7-25); CALCIUM SERUM 9.4 mg/dL (8.6-10.3); CARBON DIOXIDE 22.9 mEq/L (21.0-31.0); CHLORIDE 108 mEq/L (98-107); GFR AFRICAN-AMERICAN > 60.0 ml/min (>90); GFR NON AFRICAN-AMERICAN > 60.0 ml/min; GLUCOSE 99 mg/dL (70-105); LIPASE 7 U/L (11-82); SGOT 19 U/L (13-39); SGPT/ALT 18 U/L (7-52); SODIUM SERUM 141 mEq/L (136-145); TOTAL PROTEIN,SERUM 6.5 gm/dL (6.0-8.3)
[2018-07-01] MEDS: Lactobacillus Rhamnosus GG 15 Billion CFU CAP.SPRINK PO SCH (08:17)
--- NOTE | 2018-07-01 08:58 | General Progress Note ---
Subjective - Review of Systems Service Date: 07/01/18 Subjective: I am better Objective - Results Result Diagrams: 07/01/18 05:45 07/01/18 06:00 Recent Labs: Laboratory Last Values WBC 15.3 Th/cmm (4.8-10.8) H 07/01/18 05:45 RBC 4.60 Mil/cmm (3.80-5.10) 07/01/18 05:45 Hgb 14.2 gm/dL (12-16) 07/01/18 05:45 Hct 41.4 % (41.0-60) 07/01/18 05:45 MCV 89.9 fl (81-100) 07/01/18 05:45 MCH 30.9 pg (27.0-31.0) 07/01/18 05:45 MCHC Differential 34.4 pg (28.0-36.0) 07/01/18 05:45 RDW 11.9 % (11.5-20.0) 07/01/18 05:45 Plt Count 227 Th/cmm (150-400) 07/01/18 05:45 MPV 7.8 fl 07/01/18 05:45 Add Manual Diff YES 06/30/18 05:35 Neutrophils % 72.6 % (40.0-80.0) 07/01/18 05:45 Band Neutrophils % 1 % (0-10) 06/30/18 05:35 Lymphocytes % 17.9 % (20.0-50.0) L 07/01/18 05:45 Monocytes % 9.1 % (2.0-10.0) 07/01/18 05:45 Eosinophils % 0.4 % (0.0-5.0) 07/01/18 05:45 Basophils % 0.0 % (0.0-2.0) 07/01/18 05:45 Neutrophils (Manual) 88 % (40-80) H 06/30/18 05:35 Lymphocytes 5 % (20-50) L 06/30/18 05:35 Monocytes 5 % (2-10) 06/30/18 05:35 Eosinophils 0 % (0-5) 06/30/18 05:35 Basophils 1 % (0-3) 06/30/18 05:35 PT 11.2 SECONDS (9.5-11.5) 07/01/18 05:45 INR 1.08 (0.5-1.4) 07/01/18 05:45 PTT (Actin FS) 25.6 SECONDS (26.0-38.0) L 07/01/18 05:45 Sodium 141 mEq/L (136-145) 07/01/18 06:00 Potassium 3.0 mEq/L (3.5-5.1) L 07/01/18 06:00 Chloride 108 mEq/L (98-107) H 07/01/18 06:00 Carbon Dioxide 22.9 mEq/L (21.0-31.0) 07/01/18 06:00 Anion Gap 13.1 (7.0-16.0) 07/01/18 06:00 BUN 9 mg/dL (7-25) 07/01/18 06:00 Creatinine 1.0 mg/dL (0.6-1.2) 07/01/18 06:00 Est GFR ( Amer) > 60.0 ml/min (>90) 07/01/18 06:00 Est GFR (Non-Af Amer) > 60.0 ml/min 07/01/18 06:00 BUN/Creatinine Ratio 9.0 07/01/18 06:00 Glucose 99 mg/dL (70-105) 07/01/18 06:00 POC Glucose 93 MG/DL (70 - 105) 07/01/18 08:49 Whole Bld Lactic Acid 1.31 mmol/L (0.60-1.99) 06/29/18 17:10 Calcium 9.4 mg/dL (8.6-10.3) 07/01/18 06:00 Phosphorus 1.6 mg/dL (2.5-5.0) L 06/28/18 09:45 Magnesium 1.7 mg/dL (1.9-2.7) L 06/28/18 09:45 Total Bilirubin 1.4 mg/dL (0.3-1.0) H 07/01/18 06:00 Direct Bilirubin 0.37 mg/dL (0.0-0.2) H 06/30/18 05:35 AST 19 U/L (13-39) 07/01/18 06:00 ALT 18 U/L (7-52) 07/01/18 06:00 Alkaline Phosphatase 31 U/L (34-104) L 07/01/18 06:00 Total Protein 6.5 gm/dL (6.0-8.3) 07/01/18 06:00 Albumin 4.1 gm/dL (3.7-5.3) 07/01/18 06:00 Globulin 2.4 gm/dL 07/01/18 06:00 Albumin/Globulin Ratio 1.7 (1.0-1.8) 07/01/18 06:00 Amylase 11 U/L (29-103) L 07/01/18 06:00 Lipase 7 U/L (11-82) L 07/01/18 06:00 Serum , Qual NEGATIVE (NEGATIVE) 06/28/18 09:45 Urine Source CLEAN C 06/28/18 10:20 Urine Color YELLOW 06/28/18 10:20 Urine Clarity CLEAR (CLEAR) 06/28/18 10:20 Urine pH 8.5 (4.6 - 8.0) 06/28/18 10:20 Ur Specific [place] 1.020 (1.005-1.030) 06/28/18 10:20 Urine Protein NEGATIVE mg/dL (NEGATIVE) 06/28/18 10:20 Urine Glucose (UA) NEGATIVE mg/dL (NEGATIVE) 06/28/18 10:20 Urine Ketones TRACE mg/dL (NEGATIVE) 06/28/18 10:20 Urine Blood NEGATIVE (NEGATIVE) 06/28/18 10:20 Urine Nitrate NEGATIVE (NEGATIVE) 06/28/18 10:20 Urine Bilirubin NEGATIVE (NEGATIVE) 06/28/18 10:20 Urine Urobilinogen 0.2 E.U./dL (0.2 - 1.0) 06/28/18 10:20 Ur Leukocyte Esterase NEGATIVE (NEGATIVE) 06/28/18 10:20 Urine RBC 0-2 /hpf (0-5) 06/28/18 10:20 Urine WBC 0-2 /hpf (0-5) 06/28/18 10:20 Ur Epithelial Cells MANY /lpf (FEW) 06/28/18 10:20 Amorphous Sediment MODERATE PHOSPHATES (NONE SEEN) 06/28/18 10:20 Urine Bacteria NONE SEEN /hpf (NONE SEEN) 06/28/18 10:20 Urine Mucus FEW /lpf (FEW) 06/28/18 10:20 Stool Occult Blood NEGATIVE (NEGATIVE) 06/28/18 14:44 Vancomycin Trough 13.0 ug/mL (5-10) H 06/29/18 08:30 Urine Opiates Screen NEGATIVE (NEGATIVE) 06/28/18 10:20 Urine Methadone Screen NEGATIVE (NEGATIVE) 06/28/18 10:20 Ur Barbiturates Screen NEGATIVE (NEGATIVE) 06/28/18 10:20 Ur Tricyclics Screen NEGATIVE (NEGATIVE) 06/28/18 10:20 Ur Phencyclidine Scrn NEGATIVE (NEGATIVE) 06/28/18 10:20 Amphetamines Screen NEGATIVE (NEGATIVE) 06/28/18 10:20 U Methamphetamines Scrn NEGATIVE (NEGATIVE) 06/28/18 10:20 U Benzodiazepines Scrn NEGATIVE (NEGATIVE) 06/28/18 10:20 U Cocaine Metab Screen NEGATIVE (NEGATIVE) 06/28/18 10:20 U Cannabinoids Screen POSITIVE (NEGATIVE) H 06/28/18 10:20 - Physical Exam Vitals and I&O: Vital Signs Temp 99.1 F 07/01/18 04:00 Pulse 52 07/01/18 04:00 Resp 20 07/01/18 04:00 BP 112/65 07/01/18 04:00 Pulse Ox 97 07/01/18 04:00 Intake & Output 06/30/18 07/01/18 07/01/18 18:59 06:59 18:59 Intake Total 1992.75 Balance 75 Weight (lbs) 64.41 kg 61.734 kg Intake: Intake, IV Amount 993.75 Sodium Chloride 0.9% 1, 993.75 000 ml @ 75 mls/hr IV . [id number] [facility] Rx#:[id number] Oral 1000 Other: # Voids 5 # Bowel Movements 2 Stool Characteristics Soft Soft Formed Formed Brown Brown Weight Source Bedscale Bedscale Active Medications: Current Medications Diphenhydramine HCl (Benadryl) 50 mg PO QID PRN PRN Reason: Insomnia Stop: 08/29/18 20:49 Last Admin: 06/30/18 21:13 Dose: 50 mg Hydromorphone HCl (Dilaudid) 1 mg IVP Q6HR PRN PRN Reason: Pain (Severe) Stop: 08/27/18 15:03 Last Admin: 07/01/18 06:40 Dose: 1 mg Sodium Chloride (Nacl 0.9%) 1,000 mls @ 75 mls/hr IV .[id number] [facility] Stop: 08/27/18 15:03 Last Admin: 06/30/18 18:59 Dose: 75 mls/hr Ceftriaxone Sodium 1 gm/ (Dextrose) 50 mls @ 100 mls/hr IV Q24H MICHAEL Stop: 08/28/18 15:59 Last Admin: 06/30/18 16:00 Dose: 100 mls/hr Lactobacillus Rhamnosus (Culturelle 15b) 1 each PO DAILY MICHAEL Stop: 08/29/18 08:59 Last Admin: 07/01/18 08:17 Dose: Not Given Metronidazole (Flagyl) 500 mg PO BID MICHAEL Stop: 07/06/18 16:59 Last Admin: 07/01/18 08:17 Dose: Not Given Miscellaneous (Probiotic Screen) 1 ea MC PRN PRN PRN Reason: PROTOCOL Stop: 08/28/18 11:29 Ondansetron HCl (Zofran) 4 mg IV Q6H PRN PRN Reason: Nausea / Vomiting Stop: 08/28/18 16:18 Last Admin: 07/01/18 06:39 Dose: 4 mg Pantoprazole Sodium (Protonix) 40 mg IVP DAILY MICHAEL Stop: 08/29/18 13:59 Last Admin: 07/01/18 08:23 Dose: 40 mg General: Alert, Oriented x3, No acute distress HEENT: Atraumatic Neck: Supple Cardiovascular: Regular rate Lungs: Clear to auscultation Abdomen: Bowel sounds, Soft, Other (Tender at palpation on hepygastry) Extremities: Other (No edema) Neurological: Normal gait Skin: Other (Warm and dry) Psych/Mental Status: Mental status NL Assessment/Plan - Assessment Assessment: Patient is awake, calm in no acute distress. The WBC and billirubin decreased today. Dx: abdominal pain, Leukocytosis - Plan Plan: Patient is in IV NS, antibiotic change to IV Rocephin and metronidazole. Patient follow by ID and surgery and GI. HIDA scan was normal. Upper endoscopy and MRCP will be done . Will continue to monitor.
[2018-07-01] MEDS ORDERED: Propofol 10 mg/mL 20mL Vial **SURGERY USE ONLY IV ONE (09:00)
[2018-07-01] MEDS ORDERED: Lidocaine 2% Gel 5 mL TP ONE (09:00)
[2018-07-01] MEDS ORDERED: Potassium Phosphate 20 MMOLE in Sodium Chloride 0.9% 250 ML IV ONE (09:06)
[2018-07-01] MEDS ORDERED: KCL 20mEq/100mL Premix 20 MEQ/100 ML PIGGYBACK IV ONE (09:35)
--- NOTE | 2018-07-01 10:13 | Operative Report ---
DATE OF SURGERY: 07/01/2018 PROCEDURE: Esophagogastroduodenoscopy with biopsy. PREOPERATIVE DIAGNOSIS: Epigastric abdominal pain with nausea and vomiting. POSTPROCEDURE DIAGNOSES: 1. Mild gastritis of the fundus more so than antrum, status post biopsy and CLOtest. 2. Normal duodenum, status post biopsies to rule out celiac disease. INDICATIONS: A 22-year-old female with cannabis abuse, admitted for epigastric pain, nausea and vomiting. She also had leukocytosis. She had mild elevation of bilirubin level thought to be from sepsis or antibiotics. She has been placed on antibiotics. She also has been placed on Protonix and Zofran. She has persistent symptoms and upper endoscopy is planned today for further evaluation. CONSENT: Informed consent was obtained from the patient prior to procedure after detailed explanation of risks, benefits and alternatives including but not limited to infection, bleeding, perforation and . SEDATION: Monitored anesthesia care per Dr. Graves. DESCRIPTION OF PROCEDURE AND FINDINGS: The procedure took place as an inpatient in the GI suite of [facility]. The patient was kept in a left lateral decubitus position. Adequate sedation was achieved with above medications. An Olympus diagnostic upper endoscope was advanced via the patient's mouth and into the esophagus. It was advanced via the stomach and into the duodenum up to second portion. Retroflexion was next performed in the stomach. Notable findings included a normal-appearing esophagus. There was a moderate gastritis of the fundus. There was mild gastritis in the antrum. Biopsies were obtained from the fundus and submitted for histopathology. Biopsies were obtained from antrum and mid body submitted for CLOtest as well as histopathology. The pyloric channel and duodenum up to this portion appeared normal. Random biopsies were obtained from second portion to rule out celiac disease. Scope was withdrawn. The patient tolerated the procedure well and no complications are anticipated. RECOMMENDATIONS: 1. Follow biopsy results and treat for H. pylori if positive. 2. Protonix. 3. Antiemetics including Zofran. 4. Clear liquid diet for now. 5. Monitor labs. 6. Continued cannabis cessation strongly advised. Thank you, Dr. Juan Gutierrez for involving us in the care of your patient. If you have any further questions, please call us. [facility]# [phone] [id number] [facility]
[2018-07-01] MEDS: Sodium Chloride 0.9% 1,000 ML IV SCH (10:20)
--- NOTE | 2018-07-01 11:04 | General Progress Note ---
Subjective - Review of Systems Service Date: 07/01/18 Events since last encounter: EGD noted will sign off Objective - Results Result Diagrams: 07/01/18 05:45 07/01/18 06:00 Recent Labs: Laboratory Last Values WBC 15.3 Th/cmm (4.8-10.8) H 07/01/18 05:45 RBC 4.60 Mil/cmm (3.80-5.10) 07/01/18 05:45 Hgb 14.2 gm/dL (12-16) 07/01/18 05:45 Hct 41.4 % (41.0-60) 07/01/18 05:45 MCV 89.9 fl (81-100) 07/01/18 05:45 MCH 30.9 pg (27.0-31.0) 07/01/18 05:45 MCHC Differential 34.4 pg (28.0-36.0) 07/01/18 05:45 RDW 11.9 % (11.5-20.0) 07/01/18 05:45 Plt Count 227 Th/cmm (150-400) 07/01/18 05:45 MPV 7.8 fl 07/01/18 05:45 Add Manual Diff YES 06/30/18 05:35 Neutrophils % 72.6 % (40.0-80.0) 07/01/18 05:45 Band Neutrophils % 1 % (0-10) 06/30/18 05:35 Lymphocytes % 17.9 % (20.0-50.0) L 07/01/18 05:45 Monocytes % 9.1 % (2.0-10.0) 07/01/18 05:45 Eosinophils % 0.4 % (0.0-5.0) 07/01/18 05:45 Basophils % 0.0 % (0.0-2.0) 07/01/18 05:45 Neutrophils (Manual) 88 % (40-80) H 06/30/18 05:35 Lymphocytes 5 % (20-50) L 06/30/18 05:35 Monocytes 5 % (2-10) 06/30/18 05:35 Eosinophils 0 % (0-5) 06/30/18 05:35 Basophils 1 % (0-3) 06/30/18 05:35 PT 11.2 SECONDS (9.5-11.5) 07/01/18 05:45 INR 1.08 (0.5-1.4) 07/01/18 05:45 PTT (Actin FS) 25.6 SECONDS (26.0-38.0) L 07/01/18 05:45 Sodium 141 mEq/L (136-145) 07/01/18 06:00 Potassium 3.0 mEq/L (3.5-5.1) L 07/01/18 06:00 Chloride 108 mEq/L (98-107) H 07/01/18 06:00 Carbon Dioxide 22.9 mEq/L (21.0-31.0) 07/01/18 06:00 Anion Gap 13.1 (7.0-16.0) 07/01/18 06:00 BUN 9 mg/dL (7-25) 07/01/18 06:00 Creatinine 1.0 mg/dL (0.6-1.2) 07/01/18 06:00 Est GFR ( Amer) > 60.0 ml/min (>90) 07/01/18 06:00 Est GFR (Non-Af Amer) > 60.0 ml/min 07/01/18 06:00 BUN/Creatinine Ratio 9.0 07/01/18 06:00 Glucose 99 mg/dL (70-105) 07/01/18 06:00 POC Glucose 93 MG/DL (70 - 105) 07/01/18 08:49 Whole Bld Lactic Acid 1.31 mmol/L (0.60-1.99) 06/29/18 17:10 Calcium 9.4 mg/dL (8.6-10.3) 07/01/18 06:00 Phosphorus 1.6 mg/dL (2.5-5.0) L 06/28/18 09:45 Magnesium 1.7 mg/dL (1.9-2.7) L 06/28/18 09:45 Total Bilirubin 1.4 mg/dL (0.3-1.0) H 07/01/18 06:00 Direct Bilirubin 0.37 mg/dL (0.0-0.2) H 06/30/18 05:35 AST 19 U/L (13-39) 07/01/18 06:00 ALT 18 U/L (7-52) 07/01/18 06:00 Alkaline Phosphatase 31 U/L (34-104) L 07/01/18 06:00 Total Protein 6.5 gm/dL (6.0-8.3) 07/01/18 06:00 Albumin 4.1 gm/dL (3.7-5.3) 07/01/18 06:00 Globulin 2.4 gm/dL 07/01/18 06:00 Albumin/Globulin Ratio 1.7 (1.0-1.8) 07/01/18 06:00 Amylase 11 U/L (29-103) L 07/01/18 06:00 Lipase 7 U/L (11-82) L 07/01/18 06:00 Serum , Qual NEGATIVE (NEGATIVE) 06/28/18 09:45 Urine Source CLEAN C 06/28/18 10:20 Urine Color YELLOW 06/28/18 10:20 Urine Clarity CLEAR (CLEAR) 06/28/18 10:20 Urine pH 8.5 (4.6 - 8.0) 06/28/18 10:20 Ur Specific [place] 1.020 (1.005-1.030) 06/28/18 10:20 Urine Protein NEGATIVE mg/dL (NEGATIVE) 06/28/18 10:20 Urine Glucose (UA) NEGATIVE mg/dL (NEGATIVE) 06/28/18 10:20 Urine Ketones TRACE mg/dL (NEGATIVE) 06/28/18 10:20 Urine Blood NEGATIVE (NEGATIVE) 06/28/18 10:20 Urine Nitrate NEGATIVE (NEGATIVE) 06/28/18 10:20 Urine Bilirubin NEGATIVE (NEGATIVE) 06/28/18 10:20 Urine Urobilinogen 0.2 E.U./dL (0.2 - 1.0) 06/28/18 10:20 Ur Leukocyte Esterase NEGATIVE (NEGATIVE) 06/28/18 10:20 Urine RBC 0-2 /hpf (0-5) 06/28/18 10:20 Urine WBC 0-2 /hpf (0-5) 06/28/18 10:20 Ur Epithelial Cells MANY /lpf (FEW) 06/28/18 10:20 Amorphous Sediment MODERATE PHOSPHATES (NONE SEEN) 06/28/18 10:20 Urine Bacteria NONE SEEN /hpf (NONE SEEN) 06/28/18 10:20 Urine Mucus FEW /lpf (FEW) 06/28/18 10:20 Stool Occult Blood NEGATIVE (NEGATIVE) 06/28/18 14:44 Vancomycin Trough 13.0 ug/mL (5-10) H 06/29/18 08:30 Urine Opiates Screen NEGATIVE (NEGATIVE) 06/28/18 10:20 Urine Methadone Screen NEGATIVE (NEGATIVE) 06/28/18 10:20 Ur Barbiturates Screen NEGATIVE (NEGATIVE) 06/28/18 10:20 Ur Tricyclics Screen NEGATIVE (NEGATIVE) 06/28/18 10:20 Ur Phencyclidine Scrn NEGATIVE (NEGATIVE) 06/28/18 10:20 Amphetamines Screen NEGATIVE (NEGATIVE) 06/28/18 10:20 U Methamphetamines Scrn NEGATIVE (NEGATIVE) 06/28/18 10:20 U Benzodiazepines Scrn NEGATIVE (NEGATIVE) 06/28/18 10:20 U Cocaine Metab Screen NEGATIVE (NEGATIVE) 06/28/18 10:20 U Cannabinoids Screen POSITIVE (NEGATIVE) H 06/28/18 10:20 HIV 1&2 Antibody Screen NEGATIVE (NEG) 07/01/18 05:45 - Physical Exam Vitals and I&O: Vital Signs Temp 97.8 F 07/01/18 08:00 Pulse 70 07/01/18 08:00 Resp 18 07/01/18 08:00 BP 110/70 07/01/18 08:00 Pulse Ox 97 07/01/18 08:00 Intake & Output 06/30/18 07/01/18 07/01/18 18:59 06:59 18:59 Intake Total 1992.75 1000 Balance 1992.75 1000 Weight (lbs) 64.41 kg 61.734 kg Intake: Intake, IV Amount 993.75 1000 Sodium Chloride 0.9% 1, 993.75 1000 000 ml @ 75 mls/hr IV . [id number] [facility] Rx#:[id number] Oral 1000 Other: # Voids 5 # Bowel Movements 2 Stool Characteristics Soft Soft Soft Formed Formed Formed Brown Brown Brown Weight Source Bedscale Bedscale Active Medications: Current Medications Diphenhydramine HCl (Benadryl) 50 mg PO QID PRN PRN Reason: Insomnia Stop: 08/29/18 20:49 Last Admin: 06/30/18 21:13 Dose: 50 mg Hydromorphone HCl (Dilaudid) 1 mg IVP Q6HR PRN PRN Reason: Pain (Severe) Stop: 08/27/18 15:03 Last Admin: 07/01/18 06:40 Dose: 1 mg Sodium Chloride (Nacl 0.9%) 1,000 mls @ 75 mls/hr IV .[id number] [facility] Stop: 08/27/18 15:03 Last Admin: 07/01/18 10:20 Dose: 75 mls/hr Ceftriaxone Sodium 1 gm/ (Dextrose) 50 mls @ 100 mls/hr IV Q24H MICHAEL Stop: 08/28/18 15:59 Last Admin: 06/30/18 16:00 Dose: 100 mls/hr Potassium Chloride (Potassium Chloride) 20 meq in 100 mls @ 50 mls/hr IV X1 ONE Stop: 07/01/18 11:34 Last Admin: 07/01/18 10:20 Dose: 50 mls/hr Lactobacillus Rhamnosus (Culturelle 15b) 1 each PO DAILY [facility] Stop: 08/29/18 08:59 Last Admin: 07/01/18 08:17 Dose: Not Given Metronidazole (Flagyl) 500 mg PO BID [facility] Stop: 07/06/18 16:59 Last Admin: 07/01/18 08:17 Dose: Not Given Miscellaneous (Probiotic Screen) 1 ea MC PRN PRN PRN Reason: PROTOCOL Stop: 08/28/18 11:29 Ondansetron HCl (Zofran) 4 mg IV Q6H PRN PRN Reason: Nausea / Vomiting Stop: 08/28/18 16:18 Last Admin: 07/01/18 06:39 Dose: 4 mg Pantoprazole Sodium (Protonix) 40 mg IVP BID [facility] Stop: 08/30/18 09:44 Last Admin: 07/01/18 09:53 Dose: Not Given General: Alert, Oriented x3, No acute distress HEENT: Atraumatic Neck: Supple Cardiovascular: Regular rate Lungs: Clear to auscultation Abdomen: Bowel sounds, Soft, Other (Tender at palpation on hepygastry) Extremities: Other (No edema) Neurological: Normal gait Skin: Other (Warm and dry) Psych/Mental Status: Mental status NL
--- NOTE | 2018-07-01 12:55 | Infectious Disease Prog Note ---
Infectious Disease Subjective - Review of Systems Service Date: 07/01/18 Subjective: Doing better, no fever. Infectious Disease Objective - Results Result Diagrams: 07/01/18 05:45 07/01/18 06:00 Recent Labs: Laboratory Last Values WBC 15.3 Th/cmm (4.8-10.8) H 07/01/18 05:45 RBC 4.60 Mil/cmm (3.80-5.10) 07/01/18 05:45 Hgb 14.2 gm/dL (12-16) 07/01/18 05:45 Hct 41.4 % (41.0-60) 07/01/18 05:45 MCV 89.9 fl (81-100) 07/01/18 05:45 MCH 30.9 pg (27.0-31.0) 07/01/18 05:45 MCHC Differential 34.4 pg (28.0-36.0) 07/01/18 05:45 RDW 11.9 % (11.5-20.0) 07/01/18 05:45 Plt Count 227 Th/cmm (150-400) 07/01/18 05:45 MPV 7.8 fl 07/01/18 05:45 Add Manual Diff YES 06/30/18 05:35 Neutrophils % 72.6 % (40.0-80.0) 07/01/18 05:45 Band Neutrophils % 1 % (0-10) 06/30/18 05:35 Lymphocytes % 17.9 % (20.0-50.0) L 07/01/18 05:45 Monocytes % 9.1 % (2.0-10.0) 07/01/18 05:45 Eosinophils % 0.4 % (0.0-5.0) 07/01/18 05:45 Basophils % 0.0 % (0.0-2.0) 07/01/18 05:45 Neutrophils (Manual) 88 % (40-80) H 06/30/18 05:35 Lymphocytes 5 % (20-50) L 06/30/18 05:35 Monocytes 5 % (2-10) 06/30/18 05:35 Eosinophils 0 % (0-5) 06/30/18 05:35 Basophils 1 % (0-3) 06/30/18 05:35 PT 11.2 SECONDS (9.5-11.5) 07/01/18 05:45 INR 1.08 (0.5-1.4) 07/01/18 05:45 PTT (Actin FS) 25.6 SECONDS (26.0-38.0) L 07/01/18 05:45 Sodium 141 mEq/L (136-145) 07/01/18 06:00 Potassium 3.0 mEq/L (3.5-5.1) L 07/01/18 06:00 Chloride 108 mEq/L (98-107) H 07/01/18 06:00 Carbon Dioxide 22.9 mEq/L (21.0-31.0) 07/01/18 06:00 Anion Gap 13.1 (7.0-16.0) 07/01/18 06:00 BUN 9 mg/dL (7-25) 07/01/18 06:00 Creatinine 1.0 mg/dL (0.6-1.2) 07/01/18 06:00 Est GFR ( Amer) > 60.0 ml/min (>90) 07/01/18 06:00 Est GFR (Non-Af Amer) > 60.0 ml/min 07/01/18 06:00 BUN/Creatinine Ratio 9.0 07/01/18 06:00 Glucose 99 mg/dL (70-105) 07/01/18 06:00 POC Glucose 93 MG/DL (70 - 105) 07/01/18 08:49 Whole Bld Lactic Acid 1.31 mmol/L (0.60-1.99) 06/29/18 17:10 Calcium 9.4 mg/dL (8.6-10.3) 07/01/18 06:00 Phosphorus 1.6 mg/dL (2.5-5.0) L 06/28/18 09:45 Magnesium 1.7 mg/dL (1.9-2.7) L 06/28/18 09:45 Total Bilirubin 1.4 mg/dL (0.3-1.0) H 07/01/18 06:00 Direct Bilirubin 0.37 mg/dL (0.0-0.2) H 06/30/18 05:35 AST 19 U/L (13-39) 07/01/18 06:00 ALT 18 U/L (7-52) 07/01/18 06:00 Alkaline Phosphatase 31 U/L (34-104) L 07/01/18 06:00 Total Protein 6.5 gm/dL (6.0-8.3) 07/01/18 06:00 Albumin 4.1 gm/dL (3.7-5.3) 07/01/18 06:00 Globulin 2.4 gm/dL 07/01/18 06:00 Albumin/Globulin Ratio 1.7 (1.0-1.8) 07/01/18 06:00 Amylase 11 U/L (29-103) L 07/01/18 06:00 Lipase 7 U/L (11-82) L 07/01/18 06:00 Serum , Qual NEGATIVE (NEGATIVE) 06/28/18 09:45 Urine Source CLEAN C 06/28/18 10:20 Urine Color YELLOW 06/28/18 10:20 Urine Clarity CLEAR (CLEAR) 06/28/18 10:20 Urine pH 8.5 (4.6 - 8.0) 06/28/18 10:20 Ur Specific [place] 1.020 (1.005-1.030) 06/28/18 10:20 Urine Protein NEGATIVE mg/dL (NEGATIVE) 06/28/18 10:20 Urine Glucose (UA) NEGATIVE mg/dL (NEGATIVE) 06/28/18 10:20 Urine Ketones TRACE mg/dL (NEGATIVE) 06/28/18 10:20 Urine Blood NEGATIVE (NEGATIVE) 06/28/18 10:20 Urine Nitrate NEGATIVE (NEGATIVE) 06/28/18 10:20 Urine Bilirubin NEGATIVE (NEGATIVE) 06/28/18 10:20 Urine Urobilinogen 0.2 E.U./dL (0.2 - 1.0) 06/28/18 10:20 Ur Leukocyte Esterase NEGATIVE (NEGATIVE) 06/28/18 10:20 Urine RBC 0-2 /hpf (0-5) 06/28/18 10:20 Urine WBC 0-2 /hpf (0-5) 06/28/18 10:20 Ur Epithelial Cells MANY /lpf (FEW) 06/28/18 10:20 Amorphous Sediment MODERATE PHOSPHATES (NONE SEEN) 06/28/18 10:20 Urine Bacteria NONE SEEN /hpf (NONE SEEN) 06/28/18 10:20 Urine Mucus FEW /lpf (FEW) 06/28/18 10:20 Stool Occult Blood NEGATIVE (NEGATIVE) 06/28/18 14:44 Vancomycin Trough 13.0 ug/mL (5-10) H 06/29/18 08:30 Urine Opiates Screen NEGATIVE (NEGATIVE) 06/28/18 10:20 Urine Methadone Screen NEGATIVE (NEGATIVE) 06/28/18 10:20 Ur Barbiturates Screen NEGATIVE (NEGATIVE) 06/28/18 10:20 Ur Tricyclics Screen NEGATIVE (NEGATIVE) 06/28/18 10:20 Ur Phencyclidine Scrn NEGATIVE (NEGATIVE) 06/28/18 10:20 Amphetamines Screen NEGATIVE (NEGATIVE) 06/28/18 10:20 U Methamphetamines Scrn NEGATIVE (NEGATIVE) 06/28/18 10:20 U Benzodiazepines Scrn NEGATIVE (NEGATIVE) 06/28/18 10:20 U Cocaine Metab Screen NEGATIVE (NEGATIVE) 06/28/18 10:20 U Cannabinoids Screen POSITIVE (NEGATIVE) H 06/28/18 10:20 HIV 1&2 Antibody Screen NEGATIVE (NEG) 07/01/18 05:45 - Physical Exam Vitals and I&O: Vital Signs Temp 97.1 F 07/01/18 12:00 Pulse 63 07/01/18 12:00 Resp 20 07/01/18 12:00 BP 137/86 07/01/18 12:00 Pulse Ox 99 07/01/18 12:00 Intake & Output 06/30/18 07/01/18 07/01/18 18:59 06:59 18:59 Intake Total 1992.75 1000 Balance 1992.75 1000 Weight (lbs) 64.41 kg 61.734 kg Intake: Intake, IV Amount 993.75 1000 Sodium Chloride 0.9% 1, 993.75 1000 000 ml @ 75 mls/hr IV . [id number] [facility] Rx#:[id number] Oral 1000 Other: # Voids 5 # Bowel Movements 2 Stool Characteristics Soft Soft Soft Formed Formed Formed Brown Brown Brown Weight Source Bedscale Bedscale Active Medications: Current Medications Diphenhydramine HCl (Benadryl) 50 mg PO QID PRN PRN Reason: Insomnia Stop: 08/29/18 20:49 Last Admin: 06/30/18 21:13 Dose: 50 mg Hydromorphone HCl (Dilaudid) 1 mg IVP Q6HR PRN PRN Reason: Pain (Severe) Stop: 08/27/18 15:03 Last Admin: 07/01/18 06:40 Dose: 1 mg Sodium Chloride (Nacl 0.9%) 1,000 mls @ 75 mls/hr IV .[id number] [facility] Stop: 08/27/18 15:03 Last Admin: 07/01/18 10:20 Dose: 75 mls/hr Ceftriaxone Sodium 1 gm/ (Dextrose) 50 mls @ 100 mls/hr IV Q24H [facility] Stop: 08/28/18 15:59 Last Admin: 06/30/18 16:00 Dose: 100 mls/hr Lactobacillus Rhamnosus (Culturelle 15b) 1 each PO DAILY [facility] Stop: 08/29/18 08:59 Last Admin: 07/01/18 08:17 Dose: Not Given Metronidazole (Flagyl) 500 mg PO BID [facility] Stop: 07/06/18 16:59 Last Admin: 07/01/18 08:17 Dose: Not Given Miscellaneous (Probiotic Screen) 1 ea PRN PRN PRN Reason: PROTOCOL Stop: 08/28/18 11:29 Ondansetron HCl (Zofran) 4 mg IV Q6H PRN PRN Reason: Nausea / Vomiting Stop: 08/28/18 16:18 Last Admin: 07/01/18 06:39 Dose: 4 mg Pantoprazole Sodium (Protonix) 40 mg IVP BID [facility] Stop: 08/30/18 09:44 Last Admin: 07/01/18 09:53 Dose: Not Given General: no acute distress, well developed, well nourished HEENT: atraumatic, normocephalic, PERRLA, EOMI Neck: supple, no thyromegaly Cardiovascular: S1S2, regular Lungs: clear to auscultation bilaterally, clear to percussion Abdomen: soft, no tender Extremities: no cyanosis, no clubbing, no edema Neurological: awake, alert, oriented Skin: intact Infectious Disease Assmt/Plan - Assessment Assessment: 1. Leukocytosis. 2. gastreoenteritis. - Plan Plan: change antibiotics to levaquin 500mg po daily and flagyl po 500mg bid x 7days from now, when stable.
[2018-07-02] MEDS: Sodium Chloride 0.9% 1,000 ML IV SCH ×3 (02:59→13:35)
[2018-07-02] MEDS: HYDROmorphone 1 mg/mL 1mL Syr IVP PRN (04:15)
[2018-07-02 05:32] LABS: % BASOPHILS 2.1 % (0.0-2.0); % EOSINOPHILS 0.4 % (0.0-5.0); % LYMPHOCYTES 16.6 % (20.0-50.0); % MONOCYTES 8.2 % (2.0-10.0); % NEUTROPHILS 72.7 % (40.0-80.0); BASOPHILE ABSOLUTE 0.2 Th/cumm (0-0.2); HEMATOCRIT 38.5 % (41.0-60); HEMOGLOBIN 13.2 gm/dL (12-16); LYMPHOCYTE ABSOLUTE 1.9 Th/cmm (1.5-3.0); MEAN CELL VOLUME 91.1 fl (81-100); MEAN CORPUSCULAR HEMOGLOBIN 31.1 pg (27.0-31.0); MEAN CORPUSCULAR HGB CONC 34.2 pg (28.0-36.0); MEAN PLATELET VOLUME 7.9 fl; MONOCYTE ABSOLUTE 0.9 Th/cmm (0.3-1.0); NEUTROPHILE ABSOLUTE 8.5 Th/cmm (1.8-8.0); PLATELET COUNT 222 Th/cmm (150-400); RED BLOOD COUNT 4.23 Mil/cmm (3.80-5.10)
[2018-07-02 05:42] LABS: WHITE BLOOD COUNT 11.5 Th/cmm (4.8-10.8)
[2018-07-02 05:44] LABS: ALB/GLOB RATIO 1.8 (1.0-1.8); ALBUMIN 3.6 gm/dL (3.7-5.3); ALKALINE PHOSPHATASE 26 U/L (34-104); AMYLASE SERUM 11 U/L (29-103); ANION GAP 9.3 (7.0-16.0); BILIRUBIN,TOTAL 1.3 mg/dL (0.3-1.0); BUN - UREA NITROGEN 5 mg/dL (7-25); CALCIUM SERUM 8.7 mg/dL (8.6-10.3); CARBON DIOXIDE 25.7 mEq/L (21.0-31.0); CHLORIDE 107 mEq/L (98-107); CREATININE - SERUM 0.8 mg/dL (0.6-1.2); GFR AFRICAN-AMERICAN > 60.0 ml/min (>90); GFR NON AFRICAN-AMERICAN > 60.0 ml/min; GLUCOSE 116 mg/dL (70-105); LIPASE 11 U/L (11-82); SGOT 18 U/L (13-39); SGPT/ALT 22 U/L (7-52); SODIUM SERUM 139 mEq/L (136-145); TOTAL PROTEIN,SERUM 5.6 gm/dL (6.0-8.3)
[2018-07-02] MEDS ORDERED: KCL 20mEq/100mL Premix 20 MEQ/100 ML PIGGYBACK IV ONE (07:44)
[2018-07-02] MEDS: Lactobacillus Rhamnosus GG 15 Billion CFU CAP.SPRINK PO SCH (08:59)
[2018-07-02 09:21] LABS: GAMMA GLUTAMYL TRANSFERASE 15 IU/L (0-60); HEP A AB IGM Negative (Negative); HEP B CORE IGM Negative (Negative); HEP B SURFACE AG QL Negative (Negative); HEP C ANTIBODY 0.1 s/co ratio (0.0-0.9)
--- NOTE | 2018-07-02 09:22 | General Progress Note ---
Subjective - Review of Systems Service Date: 07/02/18 Subjective: I am better Objective - Results Result Diagrams: 07/02/18 04:45 07/02/18 04:45 Recent Labs: Laboratory Last Values WBC 11.5 Th/cmm (4.8-10.8) H D 07/02/18 04:45 RBC 4.23 Mil/cmm (3.80-5.10) 07/02/18 04:45 Hgb 13.2 gm/dL (12-16) 07/02/18 04:45 Hct 38.5 % (41.0-60) L 07/02/18 04:45 MCV 91.1 fl (81-100) 07/02/18 04:45 MCH 31.1 pg (27.0-31.0) H 07/02/18 04:45 MCHC Differential 34.2 pg (28.0-36.0) 07/02/18 04:45 RDW 12.0 % (11.5-20.0) 07/02/18 04:45 Plt Count 222 Th/cmm (150-400) 07/02/18 04:45 MPV 7.9 fl 07/02/18 04:45 Add Manual Diff YES 06/30/18 05:35 Neutrophils % 72.7 % (40.0-80.0) 07/02/18 04:45 Band Neutrophils % 1 % (0-10) 06/30/18 05:35 Lymphocytes % 16.6 % (20.0-50.0) L 07/02/18 04:45 Monocytes % 8.2 % (2.0-10.0) 07/02/18 04:45 Eosinophils % 0.4 % (0.0-5.0) 07/02/18 04:45 Basophils % 2.1 % (0.0-2.0) H 07/02/18 04:45 Neutrophils (Manual) 88 % (40-80) H 06/30/18 05:35 Lymphocytes 5 % (20-50) L 06/30/18 05:35 Monocytes 5 % (2-10) 06/30/18 05:35 Eosinophils 0 % (0-5) 06/30/18 05:35 Basophils 1 % (0-3) 06/30/18 05:35 PT 11.2 SECONDS (9.5-11.5) 07/01/18 05:45 INR 1.08 (0.5-1.4) 07/01/18 05:45 PTT (Actin FS) 25.6 SECONDS (26.0-38.0) L 07/01/18 05:45 Sodium 139 mEq/L (136-145) 07/02/18 04:45 Potassium 3.0 mEq/L (3.5-5.1) L 07/02/18 04:45 Chloride 107 mEq/L (98-107) 07/02/18 04:45 Carbon Dioxide 25.7 mEq/L (21.0-31.0) 07/02/18 04:45 Anion Gap 9.3 (7.0-16.0) 07/02/18 04:45 BUN 5 mg/dL (7-25) L 07/02/18 04:45 Creatinine 0.8 mg/dL (0.6-1.2) 07/02/18 04:45 Est GFR ( Amer) > 60.0 ml/min (>90) 07/02/18 04:45 Est GFR (Non-Af Amer) > 60.0 ml/min 07/02/18 04:45 BUN/Creatinine Ratio 6.3 07/02/18 04:45 Glucose 116 mg/dL (70-105) H 07/02/18 04:45 POC Glucose 93 MG/DL (70 - 105) 07/01/18 08:49 Whole Bld Lactic Acid 1.31 mmol/L (0.60-1.99) 06/29/18 17:10 Calcium 8.7 mg/dL (8.6-10.3) 07/02/18 04:45 Phosphorus 1.6 mg/dL (2.5-5.0) L 06/28/18 09:45 Magnesium 1.7 mg/dL (1.9-2.7) L 06/28/18 09:45 Total Bilirubin 1.3 mg/dL (0.3-1.0) H 07/02/18 04:45 Direct Bilirubin 0.37 mg/dL (0.0-0.2) H 06/30/18 05:35 AST 18 U/L (13-39) 07/02/18 04:45 ALT 22 U/L (7-52) 07/02/18 04:45 Alkaline Phosphatase 26 U/L (34-104) L 07/02/18 04:45 Total Protein 5.6 gm/dL (6.0-8.3) L 07/02/18 04:45 Albumin 3.6 gm/dL (3.7-5.3) L 07/02/18 04:45 Globulin 2.0 gm/dL 07/02/18 04:45 Albumin/Globulin Ratio 1.8 (1.0-1.8) 07/02/18 04:45 Amylase 11 U/L (29-103) L 07/02/18 04:45 Lipase 11 U/L (11-82) 07/02/18 04:45 Serum , Qual NEGATIVE (NEGATIVE) 06/28/18 09:45 Urine Source CLEAN C 06/28/18 10:20 Urine Color YELLOW 06/28/18 10:20 Urine Clarity CLEAR (CLEAR) 06/28/18 10:20 Urine pH 8.5 (4.6 - 8.0) 06/28/18 10:20 Ur Specific [place] 1.020 (1.005-1.030) 06/28/18 10:20 Urine Protein NEGATIVE mg/dL (NEGATIVE) 06/28/18 10:20 Urine Glucose (UA) NEGATIVE mg/dL (NEGATIVE) 06/28/18 10:20 Urine Ketones TRACE mg/dL (NEGATIVE) 06/28/18 10:20 Urine Blood NEGATIVE (NEGATIVE) 06/28/18 10:20 Urine Nitrate NEGATIVE (NEGATIVE) 06/28/18 10:20 Urine Bilirubin NEGATIVE (NEGATIVE) 06/28/18 10:20 Urine Urobilinogen 0.2 E.U./dL (0.2 - 1.0) 06/28/18 10:20 Ur Leukocyte Esterase NEGATIVE (NEGATIVE) 06/28/18 10:20 Urine RBC 0-2 /hpf (0-5) 06/28/18 10:20 Urine WBC 0-2 /hpf (0-5) 06/28/18 10:20 Ur Epithelial Cells MANY /lpf (FEW) 06/28/18 10:20 Amorphous Sediment MODERATE PHOSPHATES (NONE SEEN) 06/28/18 10:20 Urine Bacteria NONE SEEN /hpf (NONE SEEN) 06/28/18 10:20 Urine Mucus FEW /lpf (FEW) 06/28/18 10:20 Stool Occult Blood NEGATIVE (NEGATIVE) 06/28/18 14:44 Vancomycin Trough 13.0 ug/mL (5-10) H 06/29/18 08:30 Urine Opiates Screen NEGATIVE (NEGATIVE) 06/28/18 10:20 Urine Methadone Screen NEGATIVE (NEGATIVE) 06/28/18 10:20 Ur Barbiturates Screen NEGATIVE (NEGATIVE) 06/28/18 10:20 Ur Tricyclics Screen NEGATIVE (NEGATIVE) 06/28/18 10:20 Ur Phencyclidine Scrn NEGATIVE (NEGATIVE) 06/28/18 10:20 Amphetamines Screen NEGATIVE (NEGATIVE) 06/28/18 10:20 U Methamphetamines Scrn NEGATIVE (NEGATIVE) 06/28/18 10:20 U Benzodiazepines Scrn NEGATIVE (NEGATIVE) 06/28/18 10:20 U Cocaine Metab Screen NEGATIVE (NEGATIVE) 06/28/18 10:20 U Cannabinoids Screen POSITIVE (NEGATIVE) H 06/28/18 10:20 HIV 1&2 Antibody Screen NEGATIVE (NEG) 07/01/18 05:45 - Physical Exam Vitals and I&O: Vital Signs Temp 97.9 F 07/02/18 08:00 Pulse 75 07/02/18 08:00 Resp 18 07/02/18 08:00 BP 124/66 07/02/18 08:00 Pulse Ox 98 07/02/18 08:00 Intake & Output 07/01/18 07/02/18 07/02/18 18:59 06:59 18:59 Intake Total 1700 1700 Output Total 50 Balance 1650 1700 Weight (lbs) 62.596 kg 58.967 kg Intake: Intake, IV Amount 1000 1000 Sodium Chloride 0.9% 1, 1000 1000 000 ml @ 75 mls/hr IV . [id number] [facility] Rx#:[id number] Oral 700 700 Output: Emesis 50 Other: # Voids 6 5 # Bowel Movements 4 Stool Characteristics Soft Formed Brown Weight Source Bedscale Bedscale Active Medications: Current Medications Diphenhydramine HCl (Benadryl) 50 mg PO QID PRN PRN Reason: Insomnia Stop: 08/29/18 20:49 Last Admin: 07/02/18 03:06 Dose: 50 mg Hydromorphone HCl (Dilaudid) 1 mg IVP Q6HR PRN PRN Reason: Pain (Severe) Stop: 08/27/18 15:03 Last Admin: 07/02/18 04:15 Dose: 1 mg Sodium Chloride (Nacl 0.9%) 1,000 mls @ 75 mls/hr IV .[id number] MICHAEL Stop: 08/27/18 15:03 Last Admin: 07/02/18 07:46 Dose: Not Given Ceftriaxone Sodium 1 gm/ (Dextrose) 50 mls @ 100 mls/hr IV Q24H MICHAEL Stop: 08/28/18 15:59 Last Admin: 07/01/18 16:06 Dose: 100 mls/hr Potassium Chloride (Potassium Chloride) 20 meq in 100 mls @ 50 mls/hr IV X1 ONE Stop: 07/02/18 09:43 Last Admin: 07/02/18 08:12 Dose: 50 mls/hr Lactobacillus Rhamnosus (Culturelle 15b) 1 each PO DAILY MICHAEL Stop: 08/29/18 08:59 Last Admin: 07/02/18 08:59 Dose: 1 each Metronidazole (Flagyl) 500 mg PO BID [facility] Stop: 07/06/18 16:59 Last Admin: 07/02/18 08:59 Dose: 500 mg Miscellaneous (Probiotic Screen) 1 ea MC PRN PRN PRN Reason: PROTOCOL Stop: 08/28/18 11:29 Ondansetron HCl (Zofran) 4 mg IV Q6H PRN PRN Reason: Nausea / Vomiting Stop: 08/28/18 16:18 Last Admin: 07/02/18 04:14 Dose: 4 mg Pantoprazole Sodium (Protonix) 40 mg IVP BID [facility] Stop: 08/30/18 09:44 Last Admin: 07/02/18 08:11 Dose: 40 mg General: Alert, Oriented x3, No acute distress HEENT: Atraumatic Neck: Supple Cardiovascular: Regular rate Lungs: Clear to auscultation Abdomen: Bowel sounds, Soft, Other (Tender at palpation on hepygastry) Extremities: Other (No edema) Neurological: Normal gait Skin: Other (Warm and dry) Psych/Mental Status: Mental status NL Assessment/Plan - Assessment Assessment: Patient is awake, calm in no acute distress. Luekocytosis and Bilirrubin are improving. Upper endoscopy showed some gastritits, HIV neg, awaiting for hepatitis panel results. Dx: abdominal pain, Leukocytosis - Plan Plan: Patient is in IV NS, IV Ceftriaxone and Metronidazol, pain control, follow by ID , GI and surgery. Will continue to monitor.
--- NOTE | 2018-07-02 11:41 | Pathology Report ---
[id number] Collection date: 07/01/2018 Surgeon: Dr. Gage Giraldo Specimen Description: 1. Gastric fundus biopsy 2. Duodenum biopsy 3. Antrum biopsy Gross Description: Part I: Received in formalin is a single fragment of bobo soft tissue measuring 0.2 cm in greatest dimension. Totally submitted in one cassette labeled A. Gross Description: Part II: Received in formalin are two bobo soft tissue fragments ranging from 0.1 to 0.2 cm in greatest dimension. Totally submitted in one cassette labeled B. Gross Description: Part III: Received in formalin are two bobo soft tissue fragments ranging from 0.1 to 0.2 cm in greatest dimension. Totally submitted in one cassette labeled C. Microscopic Description: Part I: The histologic sections show benign gastric mucosa with mild chronic inflammation present consisting of lymphocytes and plasma cells. The Giemsa stain shows no evidence for Helicobacter pylori. Diagnosis: Part I: 1. Mild chronic gastritis, gastric fundus biopsy. 2. The Giemsa stain is negative for Helicobacter pylori. Microscopic Description: Part II: The histologic sections show benign duodenal mucosa with intact intestinal villi, showing no evidence for villous abnormality. Diagnosis: Part II: No evidence for celiac disease / sprue, duodenum biopsy. Microscopic Description: Part III: The histologic sections show gastric mucosa with mild chronic inflammation consisting of lymphocytes and plasma cells. The Giemsa stain shows no evidence for Helicobacter pylori. Diagnosis: Part III: 1. Chronic gastritis, antrum biopsy. 2. The Giemsa stain is negative for Helicobacter pylori. [facility]# [id number] [facility]
[2018-07-02] MEDS ORDERED: Hydrocodone/APAP 5mg/325mg Tab PO ONE (11:55)
[2018-07-02] MEDS ORDERED: Hydrocodone/APAP 5mg/325mg Tab ONE (12:15)
--- NOTE | 2018-07-02 13:53 | GI Progress Note ---
Subjective - Review of Systems Service Date: 07/02/18 Subjective: FEELING BETTER. SWETHA DIET. Objective - Results Result Diagrams: 07/02/18 04:45 07/02/18 04:45 Recent Labs: Laboratory Last Values WBC 11.5 Th/cmm (4.8-10.8) H D 07/02/18 04:45 RBC 4.23 Mil/cmm (3.80-5.10) 07/02/18 04:45 Hgb 13.2 gm/dL (12-16) 07/02/18 04:45 Hct 38.5 % (41.0-60) L 07/02/18 04:45 MCV 91.1 fl (81-100) 07/02/18 04:45 MCH 31.1 pg (27.0-31.0) H 07/02/18 04:45 MCHC Differential 34.2 pg (28.0-36.0) 07/02/18 04:45 RDW 12.0 % (11.5-20.0) 07/02/18 04:45 Plt Count 222 Th/cmm (150-400) 07/02/18 04:45 MPV 7.9 fl 07/02/18 04:45 Add Manual Diff YES 06/30/18 05:35 Neutrophils % 72.7 % (40.0-80.0) 07/02/18 04:45 Band Neutrophils % 1 % (0-10) 06/30/18 05:35 Lymphocytes % 16.6 % (20.0-50.0) L 07/02/18 04:45 Monocytes % 8.2 % (2.0-10.0) 07/02/18 04:45 Eosinophils % 0.4 % (0.0-5.0) 07/02/18 04:45 Basophils % 2.1 % (0.0-2.0) H 07/02/18 04:45 Neutrophils (Manual) 88 % (40-80) H 06/30/18 05:35 Lymphocytes 5 % (20-50) L 06/30/18 05:35 Monocytes 5 % (2-10) 06/30/18 05:35 Eosinophils 0 % (0-5) 06/30/18 05:35 Basophils 1 % (0-3) 06/30/18 05:35 PT 11.2 SECONDS (9.5-11.5) 07/01/18 05:45 INR 1.08 (0.5-1.4) 07/01/18 05:45 PTT (Actin FS) 25.6 SECONDS (26.0-38.0) L 07/01/18 05:45 Sodium 139 mEq/L (136-145) 07/02/18 04:45 Potassium 3.0 mEq/L (3.5-5.1) L 07/02/18 04:45 Chloride 107 mEq/L (98-107) 07/02/18 04:45 Carbon Dioxide 25.7 mEq/L (21.0-31.0) 07/02/18 04:45 Anion Gap 9.3 (7.0-16.0) 07/02/18 04:45 BUN 5 mg/dL (7-25) L 07/02/18 04:45 Creatinine 0.8 mg/dL (0.6-1.2) 07/02/18 04:45 Est GFR ( Amer) > 60.0 ml/min (>90) 07/02/18 04:45 Est GFR (Non-Af Amer) > 60.0 ml/min 07/02/18 04:45 BUN/Creatinine Ratio 6.3 07/02/18 04:45 Glucose 116 mg/dL (70-105) H 07/02/18 04:45 POC Glucose 93 MG/DL (70 - 105) 07/01/18 08:49 Whole Bld Lactic Acid 1.31 mmol/L (0.60-1.99) 06/29/18 17:10 Calcium 8.7 mg/dL (8.6-10.3) 07/02/18 04:45 Phosphorus 1.6 mg/dL (2.5-5.0) L 06/28/18 09:45 Magnesium 1.7 mg/dL (1.9-2.7) L 06/28/18 09:45 Total Bilirubin 1.3 mg/dL (0.3-1.0) H 07/02/18 04:45 Direct Bilirubin 0.37 mg/dL (0.0-0.2) H 06/30/18 05:35 GGTP 15 IU/L (0-60) 07/01/18 05:45 AST 18 U/L (13-39) 07/02/18 04:45 ALT 22 U/L (7-52) 07/02/18 04:45 Alkaline Phosphatase 26 U/L (34-104) L 07/02/18 04:45 Total Protein 5.6 gm/dL (6.0-8.3) L 07/02/18 04:45 Albumin 3.6 gm/dL (3.7-5.3) L 07/02/18 04:45 Globulin 2.0 gm/dL 07/02/18 04:45 Albumin/Globulin Ratio 1.8 (1.0-1.8) 07/02/18 04:45 Amylase 11 U/L (29-103) L 07/02/18 04:45 Lipase 11 U/L (11-82) 07/02/18 04:45 Serum , Qual NEGATIVE (NEGATIVE) 06/28/18 09:45 Urine Source CLEAN C 06/28/18 10:20 Urine Color YELLOW 06/28/18 10:20 Urine Clarity CLEAR (CLEAR) 06/28/18 10:20 Urine pH 8.5 (4.6 - 8.0) 06/28/18 10:20 Ur Specific [place] 1.020 (1.005-1.030) 06/28/18 10:20 Urine Protein NEGATIVE mg/dL (NEGATIVE) 06/28/18 10:20 Urine Glucose (UA) NEGATIVE mg/dL (NEGATIVE) 06/28/18 10:20 Urine Ketones TRACE mg/dL (NEGATIVE) 06/28/18 10:20 Urine Blood NEGATIVE (NEGATIVE) 06/28/18 10:20 Urine Nitrate NEGATIVE (NEGATIVE) 06/28/18 10:20 Urine Bilirubin NEGATIVE (NEGATIVE) 06/28/18 10:20 Urine Urobilinogen 0.2 E.U./dL (0.2 - 1.0) 06/28/18 10:20 Ur Leukocyte Esterase NEGATIVE (NEGATIVE) 06/28/18 10:20 Urine RBC 0-2 /hpf (0-5) 06/28/18 10:20 Urine WBC 0-2 /hpf (0-5) 06/28/18 10:20 Ur Epithelial Cells MANY /lpf (FEW) 06/28/18 10:20 Amorphous Sediment MODERATE PHOSPHATES (NONE SEEN) 06/28/18 10:20 Urine Bacteria NONE SEEN /hpf (NONE SEEN) 06/28/18 10:20 Urine Mucus FEW /lpf (FEW) 06/28/18 10:20 Stool Occult Blood NEGATIVE (NEGATIVE) 06/28/18 14:44 Vancomycin Trough 13.0 ug/mL (5-10) H 06/29/18 08:30 Urine Opiates Screen NEGATIVE (NEGATIVE) 06/28/18 10:20 Urine Methadone Screen NEGATIVE (NEGATIVE) 06/28/18 10:20 Ur Barbiturates Screen NEGATIVE (NEGATIVE) 06/28/18 10:20 Ur Tricyclics Screen NEGATIVE (NEGATIVE) 06/28/18 10:20 Ur Phencyclidine Scrn NEGATIVE (NEGATIVE) 06/28/18 10:20 Amphetamines Screen NEGATIVE (NEGATIVE) 06/28/18 10:20 U Methamphetamines Scrn NEGATIVE (NEGATIVE) 06/28/18 10:20 U Benzodiazepines Scrn NEGATIVE (NEGATIVE) 06/28/18 10:20 U Cocaine Metab Screen NEGATIVE (NEGATIVE) 06/28/18 10:20 U Cannabinoids Screen POSITIVE (NEGATIVE) H 06/28/18 10:20 Hepatitis A IgM Ab Negative (Negative) 07/01/18 05:45 Hep Bs Antigen Negative (Negative) 07/01/18 05:45 Hep B Core IgM Ab Negative (Negative) 07/01/18 05:45 Hepatitis C Antibody 0.1 s/co ratio (0.0-0.9) 07/01/18 05:45 HIV 1&2 Antibody Screen NEGATIVE (NEG) 07/01/18 05:45 - Physical Exam Vitals and I&O: Vital Signs Temp 98.8 F 07/02/18 12:00 Pulse 61 07/02/18 12:00 Resp 20 07/02/18 12:00 BP 134/86 07/02/18 12:00 Pulse Ox 99 07/02/18 12:00 Intake & Output 07/01/18 07/02/18 07/02/18 18:59 06:59 18:59 Intake Total 1700 1700 Output Total 50 Balance 1650 1700 Weight (lbs) 62.596 kg 58.967 kg Intake: Intake, IV Amount 1000 1000 Sodium Chloride 0.9% 1, 1000 1000 000 ml @ 75 mls/hr IV . [id number] MICHAEL Rx#:[id number] Oral 700 700 Output: Emesis 50 Other: # Voids 6 5 # Bowel Movements 4 Stool Characteristics Soft Formed Brown Weight Source Bedscale Bedscale Active Medications: Current Medications Diphenhydramine HCl (Benadryl) 50 mg PO QID PRN PRN Reason: Insomnia Stop: 08/29/18 20:49 Last Admin: 07/02/18 03:06 Dose: 50 mg Sodium Chloride (Nacl 0.9%) 1,000 mls @ 75 mls/hr IV .[id number] MICHAEL Stop: 08/27/18 15:03 Last Admin: 07/02/18 13:35 Dose: Not Given Ceftriaxone Sodium 1 gm/ (Dextrose) 50 mls @ 100 mls/hr IV Q24H MICHAEL Stop: 08/28/18 15:59 Last Admin: 07/01/18 16:06 Dose: 100 mls/hr Lactobacillus Rhamnosus (Culturelle 15b) 1 each PO DAILY MICHAEL Stop: 08/29/18 08:59 Last Admin: 07/02/18 08:59 Dose: 1 each Metronidazole (Flagyl) 500 mg PO BID MICHAEL Stop: 07/06/18 16:59 Last Admin: 07/02/18 08:59 Dose: 500 mg Miscellaneous (Probiotic Screen) 1 ea MC PRN PRN PRN Reason: PROTOCOL Stop: 08/28/18 11:29 Ondansetron HCl (Zofran) 4 mg IV Q6H PRN PRN Reason: Nausea / Vomiting Stop: 08/28/18 16:18 Last Admin: 07/02/18 04:14 Dose: 4 mg Pantoprazole Sodium (Protonix) 40 mg IVP BID [facility] Stop: 08/30/18 09:44 Last Admin: 07/02/18 08:11 Dose: 40 mg General: Alert, Oriented x3, No acute distress HEENT: Atraumatic Neck: Supple Cardiovascular: Regular rate Lungs: Clear to auscultation Abdomen: Bowel sounds, Soft, no Tender, no Distended Skin: Other (Warm and dry) Psych/Mental Status: Mental status NL Assessment/Plan - Assessment Assessment: IMPRESSION: 1. EPIG PAIN WITH N/V AND LEUKOCYTOSIS. EGD SHOWED GASTRITIS. 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 RECS: 1. DIET SWETHA. 2. PROTONIX. 3. ZOFRAN PRN. 4. CANNIBUS CESSATION. GI WATSON STABLE. WILL SEE HERE NEEDED.
--- NOTE | 2018-07-02 15:26 | Discharge Summary ---
General Discharge Summary - Discharge Summary Date of Admission: 06/29/18 Admitting Diagnosis: Abdominal pain and vomiting Discharge Date: 07/02/17 Discharge Diagnosis: Abdominal pain, Leukocytosis, Hyperbillirubinemia Laboratory Findings: Laboratory Results - last 24 hr 07/01/18 07/02/18 07/02/18 05:45 04:45 04:45 WBC 11.5 H D RBC 4.23 Hgb 13.2 Hct 38.5 L MCV 91.1 MCH 31.1 H MCHC Differential 34.2 RDW 12.0 Plt Count 222 MPV 7.9 Neutrophils % 72.7 Lymphocytes % 16.6 L Monocytes % 8.2 Eosinophils % 0.4 Basophils % 2.1 H Sodium 139 Potassium 3.0 L Chloride 107 Carbon Dioxide 25.7 Anion Gap 9.3 BUN 5 L Creatinine 0.8 Est GFR ( Amer) > 60.0 Est GFR (Non-Af Amer) > 60.0 BUN/Creatinine Ratio 6.3 Glucose 116 H Calcium 8.7 Total Bilirubin 1.3 H GGTP 15 AST 18 ALT 22 Alkaline Phosphatase 26 L Total Protein 5.6 L Albumin 3.6 L Globulin 2.0 Albumin/Globulin Ratio 1.8 Amylase 11 L Lipase 11 Hepatitis A IgM Ab Negative Hep Bs Antigen Negative Hep B Core IgM Ab Negative Hepatitis C Antibody 0.1 Hospital Course: Patient was started in IV NS, IV Vancomycin and Sozyn, Zofran and Dilaudid for pain control, initially she was NPO. Consult with surgery, GI, and ID were done and recommendations were follow. Leukocytosis improved but in the third day of treatment WBC went up again. Abdominal CT, Abdominal US and HIDA scan were normal. Upper endoscopy was done and shows gastritis. The day of the discharge WBC was close to normal, bilirrubins improved, HIV neg, and Hepatitis panel Neg. Treatment: Patient was started in IV NS, Zofran, NPO, IV Vanco and sozyn, and Dilaudid, later AB were change to Levaquin and Metronidazole. She was discharge with AB po x 7 days. Cessation of Marijuana use was recommended. Condition at Discharge: Stable Disposition: PT DISCHARGED HOME Home Medications: Home Medication Medication Instructions Recorded Type metroNIDAZOLE [Flagyl] 500 mg PO BID #0 tab 07/02/18 Rx Activity: As Tolerated Consults and Follow-Up: NO,PCP PER PT [Other] Juan Gutierrez [Primary Care Provider] - Consulting Speciality: Other (To make an appointment with PCP to follow billirubin) Instructions: Gastritis, Adult, [id number]
== END 2018-07-02 14:45 | disposition home or self-care (01) | DRG 249 ==
LOC: ER 09:16 → MSI 13:48 → UNDODEPER 14:22
PROVIDERS: ADMIT General Practice; ATTEND General Practice
PROC: 0DB68ZX Excision of Stomach, Via Natural or Artificial Opening Endoscopic, Diagnostic (ICD-10-PCS; principal; 2018-07-01)
PROC: 0DB98ZX Excision of Duodenum, Via Natural or Artificial Opening Endoscopic, Diagnostic (ICD-10-PCS; 2018-07-01)
DX: K52.9 Noninfective gastroenteritis and colitis, unspecified (principal); R16.0 Hepatomegaly, not elsewhere classified; K29.70 Gastritis, unspecified, without bleeding; F12.10 Cannabis abuse, uncomplicated; D72.829 Elevated white blood cell count, unspecified; E80.6 Other disorders of bilirubin metabolism; Z79.899 Other long term (current) drug therapy; Z79.1 Long term (current) use of non-steroidal anti-inflammatories (NSAID); Z80.9 Family history of malignant neoplasm, unspecified
CPT/HCPCS: 36415-UA; 76700-TC; 76705-TC; 76830-TC; 78226-TC; 80053-TC; 80074-90; 80202-TC; 80307; 81001-TC; 82150-TC; 82248-TC; 82270-TC; 82948-90; 82977-90; 83605; 83690-TC; 83735-TC; 84100-TC; 84703-TC; 85007-TC; 85025-TC; 85610-TC; 85730-TC; 86703-TC; 87070-90; 87338-TC; 96374; 96375; 96376; A9537; C9113; J0696; J1170; J1885; J2270; J2405; J2543; J2704; J3370; J3480; J3490; J7030

== ENCOUNTER 2019-02-08 18:19 | Emergency (ER) | payer MEDICAID ==
[2019-02-08 19:53] LABS: URINE SOURCE RANDOM
[2019-02-08 19:55] LABS: URINE BILIRUBIN SMALL (NEGATIVE); URINE BLOOD LARGE (NEGATIVE); URINE GLUCOSE (UA) NEGATIVE (NEGATIVE); URINE KETONE >=80 mg/dL (NEGATIVE); URINE LEUKOCYTE ESTERASE NEGATIVE (NEGATIVE); URINE MICROSCOPIC INDICATED? YES; URINE NITRATE NEGATIVE (NEGATIVE); URINE PROTEIN 30 mg/dL (NEGATIVE); URINE UROBILINOGEN 0.2 E.U./dL (0.2 - 1.0)
[2019-02-08] MEDS ORDERED: Sodium Chloride 0.9% 1,000 ML IV ONE ×2 (20:18→22:49)
[2019-02-08 20:42] LABS: HEMATOCRIT 44.5 % (41.0-60); HEMOGLOBIN 14.8 gm/dL (12-16); MEAN CELL VOLUME 92.1 fl (81-100); MEAN CORPUSCULAR HEMOGLOBIN 30.7 pg (27.0-31.0); MEAN CORPUSCULAR HGB CONC 33.3 pg (28.0-36.0); MEAN PLATELET VOLUME 7.9 fl; PLATELET COUNT 311 Th/cmm (150-400); RED BLOOD COUNT 4.83 Mil/cmm (3.80-5.10); RED CELL DISTRIBUTION WIDTH 12.3 % (11.5-20.0)
[2019-02-08 20:45] LABS: WHITE BLOOD COUNT 19.4 Th/cmm (4.8-10.8)
[2019-02-08 20:47] LABS: URINE CLARITY HAZY (CLEAR); URINE COLOR YELLOW
[2019-02-08 20:51] LABS: URINE BACTERIA 1+ /hpf (NONE SEEN); URINE EPITHELIAL CELLS MODERATE /lpf (FEW)
[2019-02-08 20:54] LABS: BAND NEUTROPHILE 2 % (0-10); EOSINOPHIL 1 % (0-5); LYMPHOCYTE 4 % (20-50); MONOCYTE 3 % (2-10); NEUTROPHILS 90 % (40-80)
[2019-02-08 20:55] LABS: ANION GAP 20.2 (7.0-16.0); BUN - UREA NITROGEN 10 mg/dL (7-25); CALCIUM SERUM 10.2 mg/dL (8.6-10.3); CARBON DIOXIDE 18.6 mEq/L (21.0-31.0); CHLORIDE 102 mEq/L (98-107); CREATININE - SERUM 0.6 mg/dL (0.6-1.2); GFR AFRICAN-AMERICAN > 60.0 ml/min (>90); GFR NON AFRICAN-AMERICAN > 60.0 ml/min; GLUCOSE 107 mg/dL (70-105); MAGNESIUM 1.8 mg/dL (1.9-2.7); POTASSIUM SERUM 3.8 mEq/L (3.5-5.1); SODIUM SERUM 137 mEq/L (136-145)
[2019-02-08] MEDS ORDERED: Metoclopramide 5 mg/mL 2mL Vial IVP STA (21:06)
--- NOTE | 2019-02-08 21:06 | ED Physician Chart ---
ED Chief Complaint/HPI - Patient Information Date Seen:: 02/08/19 Time Seen:: 20:30 Chief Complaint:: nausea, vomiting, abdominal pain History of Present Illness:: Patient's been nauseated for 4 days. She has vomited 6 or 7 times today and had diarrhea one to 2 times. Her last normal menstrual period was 1-1/2 months ago. Patient previously smoked marijuana and took Xanax Allergies:: Allergies Allergy/AdvReac Type Severity Reaction Status Date / Time No Known Allergies Allergy Verified 06/28/18 09:30 Vitals:: Vital Signs - 8 hr 02/08/19 19:27 Temp 99.2 F HR 113 RR 19 O2 Sat % 96 Historian:: Patient Review:: Nurse's Note Reviewed ED Review of Systems - Review of Systems General/Constitutional: No fever, No chills Skin: No skin lesions Head: No headache Eyes: No loss of vision ENT: No earache Neck: No neck pain, No swelling Cardio Vascular: No chest pain, No palpitations Pulmonary: No SOB GI: Nausea, Vomiting, Diarrhea, Pain G/U: No dysuria Musculoskeletal: No bone or joint pain Endocrine: No polyuria, No polydipsia Psychiatric: No prior psych history Hematopoietic: No bruising Allergic/Immuno: No urticaria Neurological: No syncope, No focal symptoms ED Past Medical History - Past Medical History Past Medical History: No significant medical hx Family History: None Social History: No Alcohol, Other (formerly smoked marijuana) Surgical History: other Psychiatricy History: None Medication: None Family Medical History - Family Member Mother History Unknown: Yes Ethnicity: Non- Living Status: Still Living Hx Family Cancer: Yes (Hodgkins Lymphoma) Hx Family Coronary Artery Disease: No Hx Family Congestive Heart Failure: No Hx Family Hypertension: No Hx Family Stroke: No Hx Family Diabetes: No Hx Family Seizures: No Hx Family Dementia: No Hx Family AIDS: No Hx Family HIV: No Hx Family COPD: No Hx Family Hepatitis: No Hx Family Psychiatric Problems: No Hx Family Tuberculosis: No ED Physical Exam - Physical Examination General/Constitutional: Awake, Well-developed, well-nourished, Alert, No distress, GCS 15, Non-toxic appearing, Ambulatory Head: Atraumatic Eyes: Lids, conjuctiva normal, PERRL, EOMI Skin: Nl inspection, No rash, No skin lesions, No ecchymosis, Well hydrated, No lymphadenopathy ENMT: External ears, nose nl, Nasal exam nl, Lips, teeth, gums nl Neck: Nontender, Full ROM w/o pain, No JVD, No nuchal rigidity, No bruit, No mass, No stridor Respiratory: Nl effort/Exclusion, Clear to Auscultation, No Wheeze/Rhonchi/Rales Cardio Vascular: RRR, No murmur, gallop, rubs, NL S1 S2 GI: No hernia, Normal BS's, Nondistended, No mass/bruits, No McBurney tenderness Other GI comments:: Upper abdominal and periumbilical tenderness : No CVA tenderness Extremities: No tenderness or effusion, Full ROM, normal strength in all extremities, No edema, Normal digits & nails Neuro/Psych: Alert/oriented, DTR's symmetric, Normal sensory exam, Normal motor strength, Judgement/insight normal, Mood normal, Normal gait, No focal deficits Misc: Normal back, No paraspinal tenderness ED Labs/Radiology/EKG Results - Lab Results Results: Laboratory Tests 02/08/19 02/08/19 02/08/19 18:50 18:50 20:30 WBC 19.4 H RBC 4.83 Hgb 14.8 Hct 44.5 MCV 92.1 MCH 30.7 MCHC Differential 33.3 RDW 12.3 Plt Count 311 MPV 7.9 Add Manual Diff YES Band Neutrophils % 2 Neutrophils (Manual) 90 H Lymphocytes 4 L Monocytes 3 Eosinophils 1 Sodium Potassium Chloride Carbon Dioxide Anion Gap BUN Creatinine Est GFR ( Amer) Est GFR (Non-Af Amer) BUN/Creatinine Ratio Glucose Calcium Magnesium Urine Source RANDOM Urine Color YELLOW Urine Clarity HAZY Urine pH 6.0 Ur Specific [place] 1.025 Urine Protein 30 H Urine Glucose (UA) NEGATIVE Urine Ketones >=80 H Urine Blood LARGE H Urine Nitrate NEGATIVE Urine Bilirubin SMALL H Urine Urobilinogen 0.2 Ur Leukocyte Esterase NEGATIVE Urine RBC 10-25 H Urine WBC 2-5 Ur Epithelial Cells MODERATE Urine Bacteria 1+ H Urine Mucus MODERATE Urine Test POSITIVE 02/08/19 20:30 WBC RBC Hgb Hct MCV MCH MCHC Differential RDW Plt Count MPV Add Manual Diff Band Neutrophils % Neutrophils (Manual) Lymphocytes Monocytes Eosinophils Sodium 137 Potassium 3.8 Chloride 102 Carbon Dioxide 18.6 L Anion Gap 20.2 H BUN 10 Creatinine 0.6 Est GFR ( Amer) > 60.0 Est GFR (Non-Af Amer) > 60.0 BUN/Creatinine Ratio 16.7 Glucose 107 H Calcium 10.2 Magnesium 1.8 L Urine Source Urine Color Urine Clarity Urine pH Ur Specific [place] Urine Protein Urine Glucose (UA) Urine Ketones Urine Blood Urine Nitrate Urine Bilirubin Urine Urobilinogen Ur Leukocyte Esterase Urine RBC Urine WBC Ur Epithelial Cells Urine Bacteria Urine Mucus Urine Test Comments:: Ultrasound showed a 14 week normal intrauterine ED Assessment - Assessment General Assessment: Urgent drinking a lot of half Gatorade half water ED Septic Shock - . Is Septic Shock (SBP<90, OR Lactate>4 mmol\L) present?: No - <6hrs of presentation: Vital Signs: Vital Signs - 8 hr 02/08/19 19:27 Temp 99.2 F HR 113 RR 19 O2 Sat % 96 ED Reassessment (Disposition) - Reassessment Reassessment Condition:: Improved - Diagnosis Diagnosis:: Viral gastroenteritis; normal 14 week IUP - Patient Disposition Discharge/Transfer:: Home Condition at Disposition:: Stable, Improved
[2019-02-08] MEDS ORDERED: Metoclopramide 5 mg/mL 2mL Vial ONE (21:12)
--- NOTE | 2019-02-09 11:19 | Diagnostic Imaging Report ---
Exam: Pelvis ultrasound HISTORY: Nausea and vomiting Findings: Real-time ultrasound examination of the pelvis was performed utilizing transvaginal technique. The study demonstrates a single live intrauterine gestation with the crown-rump length 0.5 cm roughly correspond to 9 weeks 2 days estimated gestational age. Cardiac activity 150 bpm appreciated. Yolk sac is normal. There is evidence for chorio-amniotic membrane separation. Clinical correlation and follow-up examination recommended. IMPRESSION: Single live intrauterine gestation estimated gestational age of fecal 9 weeks 6 days. Cardiac activity is 1 50 bpm There is evidence of separation of an chorio-amnionic membrane. Clinical correlation follow-up examination recommended. Follow-up examination recommended.
--- NOTE | 2019-02-14 14:40 | Diagnostic Imaging Report ---
Abdominal and HISTORY: Pain The liver exhibits a homogeneous parenchyma. No focal lesions. The gallbladder appears normal. No calculi are seen. No biliary dilatation. Kidneys appear normal bilaterally. No other retroperitoneal or intra-abdominal abnormalities. See separate OB ultrasound report for changes related to . IMPRESSION: 1. Negative examination of the abdomen
== END 2019-02-08 23:36 | disposition home or self-care (01) ==
LOC: ER 18:19
DX: O98.511 Other viral diseases complicating pregnancy, first trimester (principal); A08.4 Viral intestinal infection, unspecified; O21.9 Vomiting of pregnancy, unspecified; Z3A.14 14 weeks gestation of pregnancy
CPT/HCPCS: 99284; 96374; 76700; 76801; 36415; 83605 ×2; 85007; 85025; 81001; 81025; 83735; 80048; J2765; J7030; Z7502